=== PATIENT | female | born 1980 | race Caucasian/White ===

== ENCOUNTER 2017-11-28 19:18 | Emergency (ER) | payer OTHER, SELFPAY ==
[2017-11-28 19:19] VITALS: BP 140/65; PULSE 90; RESP 18; TEMP 36.9; O2SAT 100; BMI 29.6
--- NOTE | 2017-11-28 19:33 | XR_ITS ---
XR chest 2V Ordering Physician: Zackary Mckoy MD Patient Age: 37 years: Female HISTORY: ITS.REASON: chest pain. Chest pain TECHNIQUE: . PA Lateral chest COMPARISON :No previous chest film FINDINGS PA lateral chest demonstrate no active disease but the lungs well expanded and clear. Heart gustavo and mediastinal structures satisfactory. No pneumothorax. No pleural effusion. The markings upper normal towards the lingula most likely reflecting anterior fat pad. Chest wall T-spine ribs unremarkable shoulder satisfactory. IMPRESSION: Lungs clear nothing definitely acute
--- NOTE | 2017-11-28 19:36 | [facility].EDCP ---
ED Disposition Clinical Impression: Chest pain Qualifiers: Chest pain type: other chest pain Qualified Code(s): R07.89 - Other chest pain; R07.8 - Other chest pain Disposition: Still a Patient Condition on Discharge: Fair Referrals: Wendy Khoury [Primary Care Provider] - Ortiz Wise MD [Staff Physician] - Time of Disposition: 20:13 - Critical Care Critical Care Time: No Attestation: On , the high probability of a clinically significant, sudden or life threatening deterioration of the following system(s) required my full and direct attention, intervention and personal management. The time I documented below is in addition to time spent performing reported procedures but includes the following listed in this critical care notation. Medical Decision Making Vital Signs: 11/28/17 19:19 Temperature 98.4 F Temperature Source Oral Pulse Rate [Right] 90 Respiratory Rate 18 Blood Pressure [Right Arm] 140/65 Blood Pressure Mean [Right Arm] 90 02 Sat by Pulse Oximetry 100 Oxygen Delivery Method Room Air - Lab Data Lab Results 11/28/17 19:43: WBC 7.4, RBC 4.89, Hgb 14.4, Hct 43.1, MCV 88.1, MCH 29.4, MCHC 33.4, RDW 13.3, Plt Count 318, MPV 8.1, Neut % (Auto) 63.2, Lymph % (Auto) 28.7, [place] % (Auto) 4.5, Eos % (Auto) 3.2, Baso % (Auto) 0.4, Neut # (Auto) 4.7, Lymph # (Auto) 2.1, [place] # (Auto) 0.3, Eos # (Auto) 0.2, Baso # (Auto) 0.0 11/28/17 19:43: PT 10.3, INR 0.95 Result diagrams: 11/28/17 19:43 Orders (Tests/Meds): ED MEDICATIONS Generic Name Dose Route Start Last Admin Trade Name Freq PRN Reason Stop Dose Admin Sodium Chloride 10 ml 11/28/17 19:47 Saline Flush 10ml Syringe IV 12/28/17 19:46 NEEDED PRN Maintain IV Site ORDERS Category Date Time Status Chest XR 2 view (NOT portable) [XR chest 2V] Stat Exams 11/28/17 19:33 Ordered Cardiac Enzymes Stat Lab 01/08/18 19:43 Received Comprehensive Metabolic Panel Stat Lab 11/28/17 19:43 Received D-Dimer Stat Lab 11/28/17 19:43 Results Prothrombin Time INR Stat Lab 11/28/17 19:43 Results EKG Request [ECG Request by /Miles] Stat Y 11/28/17 19:35 Ordered - Guille Inquiry Pt receiving controlled substance: No Guille was queried for this patient: No Chest Pain HPI - General Chief Complaint: Chest Pain Stated Complaint: chest pain Time Seen by Provider: 11/28/17 19:24 Mode of Arrival: Ambulatory Source of Information: Patient Limitations: No Limitations Description of Symptoms (Recalled from ER Triage Doc. 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 SHE IS CURRENTLY C/O MILD CHEST TIGHTNESS IN HER ANTERIOR LEFT CHEST AND LEG CRAMPS. - History of Present Illness HPI narrative: Pt comes to the ED with complaints of chest tightness for the past 1 1/2 hours and says it feels like a heaviness on the chest that she rates 6/10. She reports she has never had pain like this before...it started while she was sitting at table talking to her sister and kids. She smokes 3/4 ppd and denies ETOH and says she does use pain pills off the street but has never used IV drugs. 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 complaint: chest pain indicative of cardiac Time: 18:00 Duration: constant Activity at onset: during rest Pain location: substernal Severity: moderate Severity scale (1-10): 6 Quality: tightness, heaviness Pain radiation: none Relieving factors: nothing Exacerbating factors: nothing Associated symptoms: other (none....? anxiety) Risk Factors for CAD: Family Hx of CAD Treatments prior to or on arrival for Cardiac Chest Pain: none - Related Data Home Medications Medication Instructions Recorded Confirmed Gabapentin [Gabapentin 800mg Tab] 800 mg PO TID 11/28/17 11/28/17 OLANZapine [Zyprexa 5mg tablet] 5 mg PO HS 11/28/17 11/28/17 Omepraz
--- NOTE | 2017-11-28 19:39 | ED_ITS ---
ED Disposition Clinical Impression: Chest pain Qualifiers: Chest pain type: other chest pain Qualified Code(s): R07.89 - Other chest pain ; R07.8 - Other chest pain Disposition: Still a Patient Condition on Discharge: Fair Referrals: Wendy Khoury [Primary Care Provider] - Ortiz Wise MD [Staff Physician] - Time of Disposition: 20:13 - Critical Care Critical Care Time: No Attestation: On , the high probability of a clinically significant, sudden or life threatening deterioration of the following system(s) required my full and direct attention, intervention and personal management. The time I documented below is in addition to time spent performing reported procedures but includes the following listed in this critical care notation. Medical Decision Making Vital Signs: 11/28/17 19:19 Temperature 98.4 F Temperature Source Oral Pulse Rate [Right] 90 Respiratory Rate 18 Blood Pressure [Right Arm] 140/65 Blood Pressure Mean [Right Arm] 90 02 Sat by Pulse Oximetry 100 Oxygen Delivery Method Room Air - Lab Data Lab Results 11/28/17 19:43: WBC 7.4, RBC 4.89, Hgb 14.4, Hct 43.1, MCV 88.1, MCH 29.4, MCHC 33.4, RDW 13.3, Plt Count 318, MPV 8.1, Neut % (Auto) 63.2, Lymph % (Auto) 28.7 , [place] % (Auto) 4.5, Eos % (Auto) 3.2, Baso % (Auto) 0.4, Neut # (Auto) 4.7, Lymph # (Auto) 2.1, [place] # (Auto) 0.3, Eos # (Auto) 0.2, Baso # (Auto) 0.0 11/28/17 19:43: PT 10.3, INR 0.95 Result diagrams: 11/28/17 19:43 Orders (Tests/Meds): ED MEDICATIONS Generic Name Dose Route Start Last Admin Trade Name Freq PRN Reason Stop Dose Admin Sodium Chloride 10 ml 11/28/17 19:47 Saline Flush 10ml Syringe IV 12/28/17 19:46 NEEDED PRN Maintain IV Site ORDERS Category Date Time Status Chest XR 2 view (NOT portable) [XR chest 2V] Stat Exams 11/28/17 19:33 Ordered Cardiac Enzymes Stat Lab 01/08/18 19:43 Received Comprehensive Metabolic Panel Stat Lab 11/28/17 19:43 Received D-Dimer Stat Lab 11/28/17 19:43 Results Prothrombin Time INR Stat Lab 11/28/17 19:43 Results EKG Request [ECG Request by /Miles] Stat Y 11/28/17 19:35 Ordered - Guille Inquiry Pt receiving controlled substance: No Guille was queried for this patient: No Chest Pain HPI - General Chief Complaint: Chest Pain Stated Complaint: chest pain Time Seen by Provider: 11/28/17 19:24 Mode of Arrival: Ambulatory Source of Information: Patient Limitations: No Limitations Description of Symptoms (Recalled from ER Triage Doc. 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 SHE IS CURRENTLY C/O MILD CHEST TIGHTNESS IN HER ANTERIOR LEFT CHEST AND LEG CRAMPS. - History of Present Illness HPI narrative: Pt comes to the ED with complaints of chest tightness for the past 1 1/2 hours and says it feels like a heaviness on the chest that she rates 6/10. She reports she has never had pain like this before...it started while she was sitting at table talking to her sister and kids. She smokes 3/4 ppd and denies ETOH and says she does use pain pills off the street but has never used IV drugs. 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 MD complaint: chest pain indicative of cardiac Time: 18:00
[2017-11-28 19:51] LABS: Basophils % 0.4 % (0.1-2.0); Eosinophils # 0.2 K/mm3 (0.0-0.4); Eosinophils % 3.2 % (0.1-12.0); Hematocrit 43.1 % (37.0-47.0); Hemoglobin 14.4 g/dL (12.2-16.2); Lymphocytes # 2.1 K/mm3 (0.7-4.5); Lymphocytes % 28.7 K/mm3 (10-50); Mean Corpuscular HGB Conc 33.4 g/dL (31.8-35.4); Mean Corpuscular Hemoglobin 29.4 pg (27.0-31.2); Mean Corpuscular Volume 88.1 fl (81-99); Mean Platelet Volume 8.1 fl (7.4-10.4); Monocytes # 0.3 K/mm3 (0.1-1.0); Monocytes % 4.5 % (1.7-9.3); Neutrophils # 4.7 K/mm3 (1.8-7.8); Neutrophils % 63.2 % (37.0-80.0); Platelet Count 318 K/mm3 (142-424); Red Blood Count 4.89 M/mm3 (4.20-5.40); Red Cell Distribution Width 13.3 % (11.5-17.5); White Blood Count 7.4 K/mm3 (4.8-10.8)
[2017-11-28 20:02] LABS: INR 0.95 (0.9-1.1); Prothrombin Time 10.3 seconds (9.4-11.8)
[2017-11-28 20:25] LABS: Alanine Aminotransferase 30 U/L (12-78); Albumin Level 3.9 gm/dL (3.4-5.0); Albumin/Globulin Ratio 0.8 (1.1-1.8); Alkaline Phosphatase 117 U/L (46-116); Anion Gap 10.4 mEq/L (5-15); Aspartate Amino Transferase 40 U/L (15-37); Bilirubin,Total 0.4 mg/dL (0.2-1.0); Blood Urea Nitrogen 14 mg/dL (7-18); CKMB Relative Index 1.2 U/L (0-4.0); Carbon Dioxide 24 mmol/L (21.0-32.0); Chloride 103 mmol/L (98-107); Creatine Kinase 92 U/L (26-192); Creatine Kinase MB 1.1 mg/ml (0.0-3.6); Creatinine Clearance Estimated 76 mL/min (0-300); Creatinine,Serum 1.29 mg/dL (0.55-1.02); Estimated Glomerular Filt Rate 47 ml/min (>60); GFR (African American) 56 ML/MIN (>60); Globulin 5.2 gm/dl (1.3-3.2); Glucose 99 mg/dL (74-106); Sodium 135 mmol/L (136-145); Total Protein,Serum 9.1 gm/dL (6.4-8.2); Troponin I < 0.02 ng/ml (0.00-0.06)
[2017-11-28 20:28] LABS: Potassium 2.4 mmoL/L (3.5-5.1)
--- NOTE | 2017-11-28 20:28 | PC.NURSE ---
CRITICAL RESULT K+ 2.[address] ROMERO
[2017-11-28 20:29] LABS: D-Dimer 630 (0-400)
--- NOTE | 2017-11-28 20:47 | CT_ITS ---
CT angio chest CTA chest Ordering Physician: Zackary Mckoy MD Patient Age: 37 years: Female HISTORY: ITS.REASON: ELEVATED D-DIMER Chest pain with elevated d-dimer TECHNIQUE: Helical CT scanning performed through the chest following 70 cc [id number] followed x 40 mL normal saline. From the acquired thin helical data thickened axial images performed along with Thickened MIPp slab volume reconstruction images performed coronal and sagittal planes on independent workstation COMPARISON :Prior chest films today and 03 29 16 FINDINGS . Good visualization of pulmonary arteries with No evidence of pulmonary embolism. . Aorta and great vessels mediastinum satisfactory. No significant findings. Nosignificant mediastinal or hilar adenopathy. Small calcified nodes towards AP window. Benign feature . Heart normal size. No remarkable findings. No pericardial effusion Lungs clear. No focal pneumonia. No active disease. No pleural effusion. No chest wall or rib abnormalities. Uppermost abdomen.. Limited imaging here Small Fatty left adrenal adenoma benign feature measure up to measuring just over 10 mm size Generous stool throughout the transverse colon. Mild fatty changes in liver. Cholecystectomy IMPRESSION: -- No evidence of pulmonary embolism. Good quality study. No acute findings in the chest. Lungs clear chest wall unremarkable.
--- NOTE | 2017-11-28 20:49 | PC.NURSE ---
PT TO CT
[2017-11-28 20:51] VITALS: BP 131/67; PULSE 85; RESP 18; TEMP 36.8; O2SAT 99
[2017-11-28 21:00] VITALS: BP 106/63; PULSE 90; RESP 18; TEMP 36.6; O2SAT 99
== END 2017-11-28 22:41 | disposition home or self-care (01) ==
PROVIDERS: Emergency Provider General Practice; Family Provider Family Medicine; PCP Family Medicine
DX: R07.89 Other chest pain (principal); E26.81 Bartter's syndrome; F17.210 Nicotine dependence, cigarettes, uncomplicated; Z79.899 Other long term (current) drug therapy
CPT/HCPCS: 71046; 71275; 80053; 82550; 82553; 84484; 85025; 85378; 85610; 93005; 93041; 99284; Q9967

== ENCOUNTER 2018-04-12 16:01 | Observation (INO) ==
[2018-04-12 16:43] LABS: Basophils % 0.3 % (0.1-2.0); Eosinophils # 0.3 K/mm3 (0.0-0.4); Eosinophils % 2.5 % (0.1-12.0); Hematocrit 36.5 % (37.0-47.0); Hemoglobin 13.1 g/dL (12.2-16.2); Lymphocytes # 4.2 K/mm3 (0.7-4.5); Lymphocytes % 36.4 K/mm3 (10-50); Mean Corpuscular HGB Conc 35.9 g/dL (31.8-35.4); Mean Corpuscular Hemoglobin 30.5 pg (27.0-31.2); Mean Platelet Volume 8.1 fl (7.4-10.4); Monocytes # 0.6 K/mm3 (0.1-1.0); Monocytes % 4.8 % (1.7-9.3); Neutrophils # 6.5 K/mm3 (1.8-7.8); Platelet Count 334 K/mm3 (142-424); Red Cell Distribution Width 13.9 % (11.5-17.5); White Blood Count 11.6 K/mm3 (4.8-10.8)
[2018-04-12 17:03] LABS: Alanine Aminotransferase 23 U/L (12-78); Albumin Level 3.6 gm/dL (3.4-5.0); Albumin/Globulin Ratio 0.8 (1.1-1.8); Alkaline Phosphatase 109 U/L (46-116); Anion Gap 16.1 mEq/L (5-15); Aspartate Amino Transferase 33 U/L (15-37); Bilirubin,Total 0.7 mg/dL (0.2-1.0); Blood Urea Nitrogen 22 mg/dL (7-18); Calcium 9.1 mg/dL (8.5-10.1); Carbon Dioxide 19 mmol/L (21.0-32.0); Chloride 102 mmol/L (98-107); Globulin 4.7 gm/dl (1.3-3.2); Glucose 88 mg/dL (74-106); Sodium 135 mmol/L (136-145); Total Protein,Serum 8.3 gm/dL (6.4-8.2)
[2018-04-12 17:09] LABS: Potassium 2.1 mmoL/L (3.5-5.1)
--- NOTE | 2018-04-12 17:40 | Emergency Department Note ---
ED Disposition Clinical Impression: Hypokalemia Disposition: Still a Patient Condition on Discharge: Fair - Critical Care Critical Care Time: Yes Attestation: On 04/12/18, the high probability of a clinically significant, sudden or life threatening deterioration of the following system(s) required my full and direct attention, intervention and personal management. The time I documented below is in addition to time spent performing reported procedures but includes the following listed in this critical care notation. Total Critical Care Time: 40 Vital system(s) involved:: Metabolic Failure My critical care processes included: Assessment & monitoring of V/S, Initial and Re-exams, Data Review/Interpretation, Coordinating Care, Medication Orders and management, Documentation Medical Decision Making - Guille Inquiry Pt receiving controlled substance: Yes Guille was queried for this patient: Yes Reference #:: [id number] Risks and benefits of using a controlled substance: were not discussed with pt by me Comment: 10 rxs for gabapentin Vital Signs: 04/12/18 16:16 04/12/18 17:19 Temperature 97.6 F Temperature Source Temporal Artery Scan Pulse Rate [Right Brachial] 92 H 95 H Respiratory Rate 18 18 Blood Pressure [Right Arm] 124/67 118/60 Blood Pressure Mean [Right Arm] 86 79 Blood Pressure Source [Right Arm] Automatic Cuff Automatic Cuff Blood Pressure Position [Right Arm] Sitting Sitting 02 Sat by Pulse Oximetry 100 97 Oxygen Delivery Method Room Air Room Air - Lab Data Lab Results 04/12/18 16:30: WBC 11.6 H, RBC 4.30, Hgb 13.1, Hct 36.5 L, MCV 85.0, MCH 30.5, MCHC 35.9 H, RDW 13.9, Plt Count 334, MPV 8.1, Neut % (Auto) 56.0, Lymph % (Auto ) 36.4, [place] % (Auto) 4.8, Eos % (Auto) 2.5, Baso % (Auto) 0.3, Neut # (Auto) 6.5, Lymph # (Auto) 4.2, [place] # (Auto) 0.6, Eos # (Auto) 0.3, Baso # (Auto) 0.0 04/12/18 16:30: Sodium 135 L, Potassium 2.1 L*, Chloride 102, Carbon Dioxide 19 L, Anion Gap 16.1 H, BUN 22 H, Creatinine 1.68 H, Estimated Creat Clear 53, Estimated GFR 34 L, Est GFR ( Amer) 41 L, Glucose 88, Calcium 9.1, Total Bilirubin 0.7, AST 33, ALT 23, Alkaline Phosphatase 109, Troponin I < 0.02, Total Protein 8.3 H, Albumin 3.6, Globulin 4.7 H, Albumin/Globulin Ratio 0.8 L Result diagrams: 04/12/18 16:30 04/12/18 16:30 Orders (Tests/Meds): ED MEDICATIONS Generic Name Dose Route Start Last Admin Trade Name Freq PRN Reason Stop Dose Admin Potassium Chloride/Dextrose/Sod Cl 1,000 mls @ 100 mls/hr 04/12/18 19:54 Kcl 40meq In Dex 5%/0.45% Nacl IV 05/12/18 19:53 .Q10H DG Morphine Sulfate 4 mg 04/12/18 19:54 Morphine 2mg/Ml Syringe IV 05/12/18 19:53 Q4HP PRN Pain Non-Formulary Medication 800 mg 04/12/18 21:00 Gabapentin [Gabapentin 800mg Tab] PO 05/12/18 20:59 TID DG Non-Formulary Medication 20 mg 04/13/18 09:00 Omeprazole Magnesium [Prilosec Otc 20mg Tab] PO 05/13/18 08:59 DAILY DG Non-Formulary Medication 4 mg 04/12/18 21:00 Ondansetron Hcl [Zofran 4mg Tab] PO 05/12/18 20:59 BID DG Olanzapine 5 mg 04/12/18 21:00 Zyprexa 5mg Tablet PO 05/12/18 20:59 HS DG Ondansetron HCl 4 mg 04/12/18 19:54 Zofran 4mg/2ml Vial IV 05/12/18 19:53 Q8HP PRN Nausea Potassium Chloride 80 meq 04/12/18 21:00 Klor-Con 20meq Tablet PO 05/12/18 20:59 TID DG Spironolactone 25 mg 04/13/18 09:00 Aldactone 25mg Tablet PO 05/13/18 08:59 DAILY DG Discontinued Medications Generic Name Dose Route Start Last Admin Trade Name Freq PRN Reason Stop Dose Admin Potassium Chloride/Water 100 mls @ 50 mls/hr 04/12/18 17:30 04/12/18 17:31 Potassium Chloride 20meq/100ml Ivpb IV 04/12/18 19:29 50 mls/hr ONCE ONE Administration Morphine Sulfate 4 mg 04/12/18 18:03 04/12/18 18:24 Morphine 4mg/Ml Syringe IV 04/12/18 18:04 4 mg ONCE ONE Administration Ondansetron HCl 4 mg 04/12/18 18:03 04/12/18 18:24 Zofran 4mg/2ml Vial IV 04/12/18 18:04 4 mg ONCE ONE Administration Potassium Chloride 80 meq 04/12/18 17:13 04/12/18 17:29 Klor-Con 20meq Tablet PO 04/12/18 17:14 80 meq ONCE ONE Administration Potassium Chloride/Water 20 meq 04/12/18 17:13 Potassium Chloride 20meq/100ml Ivpb IV 04/12/18 17:14 ONCE ONE ORDERS Category Date Time Status XR chest 2V Stat Exams 04/12/18 16:32 Taken Basic Metabolic Panel AMLAB Lab 04/13/18 06:00 Ordered - ECG Data Tracing #1 EKG interpreted by Dom Sanchez MD: Rhythm: sinus Rate: 84 [place]: normal Ectopy: none Conduction: normal ST Segment Changes: Nonspecific T Wave Changes: Nonspecific Q Waves: none No evidence of acute ischemia or injury - Physician Consults Physician Consulted: Lenin Time: 18:33 Reason -: Admission Comment/Response: Agrees to admit the patient to the hospital. We discussed the patient's clinical information, including history, exam, laboratory and radiology results and ED course. Per hospital procedure, I will write temporary bridge inpatient orders on the patient. Specific orders requested by the admitting physician: D5 one half normal saline with 40 mEq of potassium at 100 cc/h, 80 mEq of potassium orally 3 times a day. Recheck chemistry profile in the morning. General Adult HPI - General Chief complaint: Weakness Stated complaint: Low potassium Time Seen by Provider: 04/12/18 17:40 Mode of Arrival: Ambulatory Limitations: No Limitations Description of Symptoms (Recalled from ER Triage Doc. by RN): WEAKNESS, MUSCLES ACHES/PAIN - History of Present Illness HPI narrative: The patient has Bartter syndrome. She says that she feels like her potassium is low since Tuesday. She saw her primary care doctor on that day, was asymptomatic until after she saw them. She says they have been trying to call her but she has not been able to get a message from them. She does not know what they were calling about. Now she has generalized weakness and muscle aches and says that it correlates with a very low potassium. Her potassium has been as low as 1.9 in the past, which required ICU admission. She says that she took 160 mEq of potassium yesterday and an extra Spironolactone. She took an additional 80 mEq of potassium today. She is requesting pain medication for muscle pain. She states her usual daily dose of potassium is 6 tablets a day, she believes they are 20 mEq tablets. When her potassium is low she takes 8 per day. - Related Data Home Medications Medication Instructions Recorded Confirmed Gabapentin [Gabapentin 800mg Tab] 800 mg PO TID 11/28/17 04/12/18 OLANZapine [Zyprexa 5mg tablet] 5 mg PO HS 11/28/17 04/12/18 Omeprazole Magnesium [Prilosec Otc 20 mg PO DAILY 11/28/17 04/12/18 20mg Tab] Ondansetron HCl [Zofran 4mg Tab] 4 mg PO BID 11/28/17 04/12/18 Potassium Chloride [Pot Chlor 20 40 meq PO QID 11/28/17 04/12/18 mEq Tab] Spironolactone [Aldactone 25mg 25 mg PO DAILY 11/28/17 04/12/18 Tab] Allergies Allergy/AdvReac Type Severity Reaction Status Date / Time Penicillins [PENICILLINS] Allergy Mild Verified 11/28/17 19:33 [facility] History I have reviewed the patient's past medical history: Yes - Social History Educational Level: Completed High School Smoking Status: Current some day smoker Tobacco Type: cigarettes Alcohol Intake: never Alcohol Intake Frequency:: holidays/special occasions only Substance Use Type: opiates - Psychiatric History Expresses thoughts of harming self/others: None Suicide Plan Description: No Plan ROS Obtained: Yes All systems reviewed & no additional complaints - Constitutional Constitutional: Reports body ache, Reports weakness, Reports other (Anxiety) Physical Exam - General General appearance: alert, in no apparent distress, anxious - Head Head exam: atraumatic, normocephalic, normal inspection - Eye Eye exam: Present: normal appearance, PERRL, EOMI - ENT ENT exam: Present: normal exam, normal oropharynx, mucous membranes moist, TM's normal bilaterally, normal external ear exam - Neck Neck exam: Present: normal inspection, full ROM, trachea midline. Absent: meningismus, lymphadenopathy - Chest Chest inspection: Present: normal inspection, symmetric chest wall rise. Absent : tenderness - Respiratory Respiratory exam: Present: normal lung sounds bilaterally. Absent: respiratory distress - Cardiovascular Cardiovascular exam: Present: regular rate, normal rhythm. Absent: JVD - Abdominal Exam Abdominal exam: Present: soft, normal bowel sounds. Absent: distention, tenderness, guarding - Extremities Exam Extremities exam: Present: normal inspection, full ROM, normal capillary refill. Absent: calf tenderness - Back Exam Back exam: Present: normal inspection. Absent: tenderness - Neurological Exam Neurological exam: Present: alert, oriented X3 - Psychiatric Psychiatric exam: Present: anxious - Skin Skin exam: Present: warm, dry, intact, normal color
--- NOTE | 2018-04-13 07:32 | Pharmacy Consult Notes ---
[facility] Pharmacy VTE Monitoring - Patient Demographics Admission date: 04/12/18 Report Date: 04/13/18 Time: 07:31 Allergies/Adverse Reactions: Patient Allergies Penicillins [PENICILLINS] Allergy (Mild, Verified 11/28/17 19:33) Height: 1.65 m Weight: 74.503 kg Patient Problems: Current Active Problems Hypokalemia (Acute) - VTE Risk Labs: VTE Related Lab Results Hgb 13.1 g/dL (12.2-16.2) 04/12/18 16:30 Hct 36.5 % (37.0-47.0) L 04/12/18 16:30 Plt Count 334 K/mm3 (142-424) 04/12/18 16:30 BUN 22 mg/dL (7-18) H 04/12/18 16:30 Creatinine 1.68 mg/dL (0.55-1.02) H 04/12/18 16:30 Estimated Creat Clear 53 mL/min (0-300) 04/12/18 16:30 VTE Score: 1 - Prophylaxis VTE Prophylaxis Ordered?: Yes Types of VTE Prophylaxis: TEDS Knee High Location of Applied Device: Bilateral Lower Extremeties - VTE Diagnosis Confirmed Treatment or plan recommended: Continue Current Treatment
[2018-04-13 07:55] LABS: Anion Gap 15.7 mEq/L (5-15)
[2018-04-13 08:09] LABS: Potassium 2.7 mmoL/L (3.5-5.1)
--- NOTE | 2018-04-13 08:40 | History & Physical Report ---
*Admission Date: 04/12/18 <Eulalia López 04/13/18 08:43> *Chief complaint: hypokalemia <Eulalia López 04/13/18 08:43> *History of present illness: Ms. Solano is a 38-year-old female with a history of Bartter syndrome, anxiety, and bipolar disorder who went to her [facility] physician's office on Tuesday to have her blood checked. Her potassium at that time was 2.5. Her physician recommended she go to the emergency room, however she did not go until yesterday. She stayed at home and took approximately twelve 40 mEq potassium pills. When she got to the ER yesterday her potassium was down to 2.1, therefore she was admitted and started on potassium. She states due to the Bartter's syndrome she has consistently low potassium levels. She says her level is never higher than 2.7. This a.m. she is very anxious. She states she has to get out of here and go outside. She is complaining of diffuse muscle aches. <Eulalia López 04/13/18 08:43> [facility] History Medical History: Reports:: Anxiety Denies:: Cancer, Diabetes Mellitus Type 1, Diabetes Mellitus Type 2, MRSA < Eulalia López 04/13/18 08:43> Comment: Bipolar, Bartter Syndrome <Eulalia López 04/13/18 08:43> Other Surgeries: Yes: Appendectomy, Cholecystectomy, Other (tubal) <Eulalia López 04/13/18 08:43> Amputation: No <Eulalia López 04/13/18 08:43> Fractures: No <Eulalia López 04/13/18 08:43> - *Social History Educational Level: Completed Grade School <Eulalia López 04/13/18 08:43> Smoking Status: Current every day smoker <Eulalia López 04/13/18 08:43> Tobacco Type: cigarettes <Eulalia López 04/13/18 08:43> # Packs/Day (cigarettes): 1 <Eulalia López 04/13/18 08:43> #Yrs smoked (if former smoker): 20 <Eulalia López 04/13/18 08:43> Alcohol Intake: never <MaribelEulalia Kati 04/13/18 08:43> Alcohol Intake Frequency:: holidays/special occasions only <MaribelEulalia 08:43> Substance Use Type: opiates <Ronak Lópeza 04/13/18 08:43> Occupational Status: disabled <MaribelEulalia 04/13/18 08:43> Housing: house <MaribelEulalia 04/13/18 08:43> Household Members: family <MaribelEulalia Kati 04/13/18 08:43> - Psychiatric History Expresses thoughts of harming self/others: None <Eulalia López 04/13/18 08: 43> Suicide Plan Description: No Plan <MaribelEulalia 04/13/18 08:43> *Family Hx:: Unable to obtain <Eulalia López 04/13/18 08:43> Review of Systems - Constitutional Reports weakness, Denies fever(s) <MaribelEulalia 04/13/18 08:43> - Eyes Denies blurry vision, Denies double vision <MaribelEulalia 04/13/18 08:43> - ENT Denies nasal congestion, Denies sore throat <MaribelEulalia 04/13/18 08:43> - *Cardiovascular Denies chest pain <MaribelEulalia 04/13/18 08:43> - *Respiratory Reports shortness of breath <MaribelEulalia 04/13/18 08:43> - *Gastrointestinal Denies loose stools, Denies nausea, Denies vomiting <Eulalia López 04/13/18 08:43> - *Genitourinary Denies difficulty urinating, Denies painful urination <MaribelEulalia 08:43> - *Musculoskeletal Reports muscle cramps, Reports muscle weakness <Eulalia López 04/13/18 08:43 > - *Neurologic Reports weakness, Denies headache(s) <Eulalia López 04/13/18 08:43> Meds Home Medications Medication Instructions Recorded Confirmed Type Gabapentin [Gabapentin 800mg Tab] 800 mg PO TID 11/28/17 04/13/18 History OLANZapine [Zyprexa 5mg tablet] 5 mg PO HS 11/28/17 04/13/18 History Omeprazole Magnesium [Prilosec Otc 20 mg PO DAILY 11/28/17 04/12/18 History 20mg Tab] Ondansetron HCl [Zofran 4mg Tab] 4 mg PO BID 11/28/17 04/13/18 History Potassium Chloride [Pot Chlor 20 40 meq PO QID 11/28/17 04/13/18 History mEq Tab] Spironolactone [Aldactone 25mg 25 mg PO DAILY 11/28/17 04/13/18 History Tab] Doxepin HCl 100 mg PO HS 04/13/18 04/13/18 History raNITIdine HCl [Ranitidine HCl] 150 mg PO NEEDED PRN 04/13/18 04/13/18 History <Gary Phelps - 04/13/18 09:22> Allergies Allergy/AdvReac Type Severity Reaction Status Date / Time Penicillins [PENICILLINS] Allergy Mild Verified 11/28/17 19:33 <Gary Phelps 04/13/18 09:22> Exam Vital signs and Labs for Last 24 Hours: Temp Pulse Resp BP Pulse Ox 98.3 F 88 20 93/48 100 04/13/18 08:00 04/13/18 08:00 04/13/18 08:00 04/13/18 08:00 04/13/18 08:00 Laboratory Results - last 24 hr 04/12/18 16:30: WBC 11.6 H, RBC 4.30, Hgb 13.1, Hct 36.5 L, MCV 85.0, MCH 30.5, MCHC 35.9 H, RDW 13.9, Plt Count 334, MPV 8.1, Neut % (Auto) 56.0, Lymph % (Auto ) 36.4, [place] % (Auto) 4.8, Eos % (Auto) 2.5, Baso % (Auto) 0.3, Neut # (Auto) 6.5, Lymph # (Auto) 4.2, [place] # (Auto) 0.6, Eos # (Auto) 0.3, Baso # (Auto) 0.0 04/12/18 16:30: Sodium 135 L, Potassium 2.1 L*, Chloride 102, Carbon Dioxide 19 L, Anion Gap 16.1 H, BUN 22 H, Creatinine 1.68 H, Estimated Creat Clear 53, Estimated GFR 34 L, Est GFR ( Amer) 41 L, Glucose 88, Calcium 9.1, Total Bilirubin 0.7, AST 33, ALT 23, Alkaline Phosphatase 109, Troponin I < 0.02, Total Protein 8.3 H, Albumin 3.6, Globulin 4.7 H, Albumin/Globulin Ratio 0.8 L 04/13/18 06:24: Sodium 138, Potassium 2.7 L* D, Chloride 107, Carbon Dioxide 18 L, Anion Gap 15.7 H, BUN 16 D, Creatinine 1.60 H, Estimated Creat Clear 56, Estimated GFR 36 L, Est GFR ( Amer) 44 L, Glucose 102 <Gary Phelps - 04/13/18 09:22> Temp Pulse Resp BP Pulse Ox 98.1 F 89 22 114/74 100 04/13/18 04:00 04/13/18 04:00 04/13/18 04:00 04/13/18 04:00 04/13/18 04:00 Laboratory Results - last 24 hr 04/12/18 16:30: WBC 11.6 H, RBC 4.30, Hgb 13.1, Hct 36.5 L, MCV 85.0, MCH 30.5, MCHC 35.9 H, RDW 13.9, Plt Count 334, MPV 8.1, Neut % (Auto) 56.0, Lymph % (Auto ) 36.4, [place] % (Auto) 4.8, Eos % (Auto) 2.5, Baso % (Auto) 0.3, Neut # (Auto) 6.5, Lymph # (Auto) 4.2, [place] # (Auto) 0.6, Eos # (Auto) 0.3, Baso # (Auto) 0.0 04/12/18 16:30: Sodium 135 L, Potassium 2.1 L*, Chloride 102, Carbon Dioxide 19 L, Anion Gap 16.1 H, BUN 22 H, Creatinine 1.68 H, Estimated Creat Clear 53, Estimated GFR 34 L, Est GFR ( Amer) 41 L, Glucose 88, Calcium 9.1, Total Bilirubin 0.7, AST 33, ALT 23, Alkaline Phosphatase 109, Troponin I < 0.02, Total Protein 8.3 H, Albumin 3.6, Globulin 4.7 H, Albumin/Globulin Ratio 0.8 L 04/13/18 06:24: Sodium 138, Potassium 2.7 L* D, Chloride 107, Carbon Dioxide 18 L, Anion Gap 15.7 H, BUN 16 D, Creatinine 1.60 H, Estimated Creat Clear 56, Estimated GFR 36 L, Est GFR ( Amer) 44 L, Glucose 102 <MaribelEulalia - 04/13/18 08:43> I & O for Last 24 hours: Intake & Output 04/10/18 04/11/18 04/12/18 04/13/18 11:59 11:59 11:59 11:59 Intake Total 1094 / 1094 Balance 1094 / 1094 Weight 164 lb 4 oz <Gary Phelps - 04/13/18 09:22> Intake & Output 04/10/18 04/11/18 04/12/18 04/13/18 11:59 11:59 11:59 11:59 Intake Total 854 / 854 Balance 854 / 854 Weight 164 lb 4 oz <MaribelEulalia - 04/13/18 08:43> - Constitutional Comments: Anxious and agitated <MaribelEulalia 04/13/18 08:43> - *Routine HEENT Exam Head: Present: normocephalic, atraumatic <MaribelEulalia 04/13/18 08:43> Eye: Present: EOMI, PERRL <MaribelEulalia 04/13/18 08:43> ENT: Present: mucous membranes moist <MaribelEulalia - 04/13/18 08:43> - *Routine Neck Exam Present: supple, full ROM <MaribelEulalia 04/13/18 08:43> - *Routine Respiratory Exam Present: CTA bilaterally <MaribelEulalia 04/13/18 08:43> - *Routine Cardiovascular Exam Present: RRR <MaribelEulalia - 04/13/18 08:43> - *Routine Abdominal Exam Present: soft, normoactive bowel sounds. Absent: tenderness <Eulalia López 04/13/18 08:43> - *Routine Extremities Exam Absent: edema <Eulalia López - 04/13/18 08:43> - *Routine Skin Exam Present: intact <Eulalia López - 04/13/18 08:43> - *Routine Neurological Exam Present: alert, oriented X3 <Eulalia López 04/13/18 08:43> H&P: Result - Labs Labs: Short CBC 04/12/18 Range/Units 16:30 WBC 11.6 H (4.8-10.8) K/mm3 Hgb 13.1 (12.2-16.2) g/dL Hct 36.5 L (37.0-47.0) % Plt Count 334 (142-424) K/mm3 BMP 04/12/18 04/13/18 16:30 06:24 Sodium 135 L 138 Potassium 2.1 L* 2.7 L* D Chloride 102 107 Carbon Dioxide 19 L 18 L BUN 22 H 16 D Creatinine 1.68 H 1.60 H Glucose 88 102 Calcium 9.1 Cardiac Enzymes 04/12/18 Range/Units 16:30 Troponin I < 0.02 (0.00-0.06) ng/ml Liver Function 04/12/18 Range/Units 16:30 Total Bilirubin 0.7 (0.2-1.0) mg/dL AST 33 (15-37) U/L ALT 23 (12-78) U/L Alkaline Phosphatase 109 (46-116) U/L Albumin 3.6 (3.4-5.0) gm/dL <Gary Phelps - 04/13/18 09:22> <Eulalia López 04/13/18 08:43> - Impressions CXR - normal <Eulalia López 04/13/18 08:43> Assessment and Plan (1) Hypokalemia Status: Acute Category: Medical Code(s): E87.6 - Hypokalemia (2) Bipolar disorder Status: Chronic Category: Medical Code(s): F31.9 - Bipolar disorder, unspecified (3) Bartter syndrome Status: Chronic Category: Medical Code(s): E26.81 - Bartter's syndrome <Gary Phelps - 04/13/18 09:22> (1) Hypokalemia Status: Acute Category: Medical Code(s): E87.6 - Hypokalemia (2) Bipolar disorder Status: Chronic Category: Medical Code(s): F31.9 - Bipolar disorder, unspecified (3) Bartter syndrome Status: Chronic Category: Medical Code(s): E26.81 - Bartter's syndrome <Eulalia López - 04/13/18 08:37> - Assessment and plan all Dx Assessment and Plan for all problems:: Saw patient, agree with above note. Patient left AMA just after I saw her today. <Gary Phelps - 04/13/18 09:22> Her potassium is up to 2.7 today. Will discuss further care with Dr. Phelps. <Eulalia López - 04/13/18 08:43>
[2018-04-13 08:47] VITALS: BP 93/48
--- NOTE | 2018-04-13 21:37 | Discharge Summary ---
General - General Admission date:: 04/12/18 Discharge date: 04/13/18 HPI HPI: Ms. Solano is a 38-year-old female with a history of Bartter syndrome, anxiety, and bipolar disorder who went to her [facility] physician's office on Tuesday to have her blood checked. Her potassium at that time was 2.5. Her physician recommended she go to the emergency room, however she did not go until yesterday. She stayed at home and took approximately twelve 40 mEq potassium pills. When she got to the ER yesterday her potassium was down to 2.1, therefore she was admitted and started on potassium. She states due to the Bartter's syndrome she has consistently low potassium levels. She says her level is never higher than 2.7. This a.m. she is very anxious. She states she has to get out of here and go outside. She is complaining of diffuse muscle aches. Hospital Course Hospital Course: The patient's potassium increased to 2.7. She left AMA just after Dr. Phelps saw her. Objective Vital signs: Temp Pulse Resp BP Pulse Ox 98.3 F 88 20 93/48 100 04/13/18 08:00 04/13/18 08:00 04/13/18 08:00 04/13/18 08:00 04/13/18 08:00 Narrative: - Constitutional Comments: Anxious and agitated - *Routine HEENT Exam Head: Present: normocephalic, atraumatic Eye: Present: EOMI, PERRL ENT: Present: mucous membranes moist - *Routine Neck Exam Present: supple, full ROM - *Routine Respiratory Exam Present: CTA bilaterally - *Routine Cardiovascular Exam Present: RRR - *Routine Abdominal Exam Present: soft, normoactive bowel sounds. Absent: tenderness - *Routine Extremities Exam Absent: edema - *Routine Skin Exam Present: intact - *Routine Neurological Exam Present: alert, oriented X3 Results Labs on day of discharge: Labs from last 24 hours 04/13/18 06:24 Sodium 138 Potassium 2.7 L* D Chloride 107 Carbon Dioxide 18 L Anion Gap 15.7 H BUN 16 D Creatinine 1.60 H Estimated Creat Clear 56 Estimated GFR 36 L Est GFR ( Amer) 44 L Glucose 102 DS: Diagnosis - Discharge Diagnosis (1) Hypokalemia Status: Acute (2) Bipolar disorder Status: Chronic (3) Bartter syndrome Status: Chronic Discharge Plan - Patient Discharge Instructions - Follow up Plan Disposition: Left Against Medical Advice Home Medications: Home Medications Medication Instructions Recorded Confirmed Type Gabapentin [Gabapentin 800mg Tab] 800 mg PO TID 11/28/17 04/13/18 History OLANZapine [Zyprexa 5mg tablet] 5 mg PO HS 11/28/17 04/13/18 History Omeprazole Magnesium [Prilosec Otc 20 mg PO DAILY 11/28/17 04/12/18 History 20mg Tab] Ondansetron HCl [Zofran 4mg Tab] 4 mg PO BID 11/28/17 04/13/18 History Potassium Chloride [Pot Chlor 20 40 meq PO QID 11/28/17 04/13/18 History mEq Tab] Spironolactone [Aldactone 25mg 25 mg PO DAILY 11/28/17 04/13/18 History Tab] Doxepin HCl 100 mg PO HS 04/13/18 04/13/18 History raNITIdine HCl [Ranitidine HCl] 150 mg PO NEEDED PRN 04/13/18 04/13/18 History Prescriptions/Medication Reconciliation: No Action Gabapentin [Gabapentin 800mg Tab] 800 mg PO TID OLANZapine [Zyprexa 5mg tablet] 5 mg PO HS Ondansetron HCl [Zofran 4mg Tab] 4 mg PO BID Omeprazole Magnesium [Prilosec Otc 20mg Tab] 20 mg PO DAILY Potassium Chloride [Pot Chlor 20 mEq Tab] 40 meq PO QID Spironolactone [Aldactone 25mg Tab] 25 mg PO DAILY Doxepin HCl 100 mg PO HS raNITIdine HCl [Ranitidine HCl] 150 mg PO NEEDED PRN PRN Reason: Gi Upset
== END 2018-04-13 09:16 | disposition left against medical advice (07) ==
LOC: ER 16:01 → 2ND 16:01
PROVIDERS: ADMIT Family Medicine; ATTEND Family Medicine

== ENCOUNTER 2018-07-23 20:09 | Observation (INO) ==
--- NOTE | 2018-07-23 20:30 | Emergency Department Note ---
ED Disposition Clinical Impression: Hypokalemia, Acute gastroenteritis Disposition: Still a Patient Condition on Discharge: Fair Referrals: Wendy Khoury [Primary Care Provider] - - Critical Care Critical Care Time: No Attestation: On 07/23/18, the high probability of a clinically significant, sudden or life threatening deterioration of the following system(s) required my full and direct attention, intervention and personal management. The time I documented below is in addition to time spent performing reported procedures but includes the following listed in this critical care notation. Medical Decision Making - Guille Inquiry Pt receiving controlled substance: No Vital Signs: 07/23/18 20:13 07/23/18 22:11 Temperature 98.7 F Temperature Source Oral Pulse Rate [Right Brachial] 84 82 Respiratory Rate 18 18 Blood Pressure [Right Arm] 117/92 115/88 Blood Pressure Mean [Right Arm] 100 97 Blood Pressure Source [Right Arm] Automatic Cuff Automatic Cuff Blood Pressure Position [Right Arm] Sitting Sitting 02 Sat by Pulse Oximetry 97 98 Oxygen Delivery Method Room Air Room Air - Lab Data Lab Results 07/23/18 20:25: WBC 13.7 H, RBC 5.30, Hgb 15.1, Hct 44.9, MCV 84.7, MCH 28.5, MCHC 33.6, RDW 13.8, Plt Count 401, MPV 8.5, Neut % (Auto) 78.1, Lymph % (Auto) 16.1, [place] % (Auto) 3.4, Eos % (Auto) 2.2, Baso % (Auto) 0.2, Neut # (Auto) 10.7 H, Lymph # (Auto) 2.2, [place] # (Auto) 0.5, Eos # (Auto) 0.3, Baso # (Auto) 0.0 07/23/18 20:25: Sodium 141, Potassium 2.4 L*, Chloride 106, Carbon Dioxide 20 L, Anion Gap 17.4 H, BUN 18, Creatinine 1.51 H, Estimated Creat Clear 54, Estimated GFR 39 L, Est GFR ( Amer) 47 L, Glucose 118 H, Calcium 9.6, Total Bilirubin 0.5, AST 16, ALT 17, Alkaline Phosphatase 119 H, Total Protein 9.2 H, Albumin 3.8, Globulin 5.4 H, Albumin/Globulin Ratio 0.7 L 09/02/18 20:25: Lactate 0.7 09/02/18 20:25: Lipase 228 07/23/18 20:25: Urine HCG, Qual Negative 07/23/18 20:41: Urine Color Yellow, Urine Appearance Sl cloudy, Urine pH 7.0, Ur Specific [place] 1.015, Urine Protein 1+, Urine Glucose (UA) Negative, Urine Ketones 1+, Urine Blood Trace-i, Urine Nitrate Positive, Urine Bilirubin Negative, Urine Urobilinogen 0.2, Ur Leukocyte Esterase Negative, Urine RBC 5- 10, Urine WBC Occasional, Ur Squamous Epith Cells 20-50, Amorphous Sediment 4+, Urine Bacteria 4+ Result diagrams: 07/23/18 20:25 07/23/18 20:25 Orders (Tests/Meds): ED MEDICATIONS Generic Name Dose Route Start Last Admin Trade Name Freq PRN Reason Stop Dose Admin Potassium Chloride/Water 100 mls @ 50 mls/hr 07/23/18 22:16 07/23/18 22:25 Potassium Chloride 20meq/100ml Ivpb IV 07/24/18 00:15 50 mls/hr ONCE ONE Administration Sodium Chloride 1,000 mls @ 999 mls/hr 07/23/18 22:30 07/23/18 22:30 Sod Chlor 0.9% 1000ml Bag IV 07/23/18 23:30 999 mls/hr .Q1H1M DG Administration Spironolactone 25 mg 07/24/18 09:00 Aldactone 25mg Tablet PO 08/23/18 08:59 BID DG Trimethoprim/Sulfamethoxazole 1 each 07/24/18 09:00 Bactrim Ds Tablet PO 08/07/18 08:59 BID DG Protocol Discontinued Medications Generic Name Dose Route Start Last Admin Trade Name Freq PRN Reason Stop Dose Admin Sodium Chloride 1,000 mls @ 999 mls/hr 07/23/18 20:45 07/23/18 20:37 Sod Chlor 0.9% 1000ml Bag IV 07/23/18 21:45 999 mls/hr .Q1H1M DG Administration Ondansetron HCl 4 mg 07/23/18 20:34 07/23/18 20:37 Zofran 4mg/2ml Vial IV 07/23/18 20:35 4 mg ONCE ONE Administration Potassium Chloride 80 meq 07/23/18 21:08 07/23/18 21:36 Klor-Con 20meq Tablet PO 07/23/18 21:09 80 meq ONCE ONE Administration Potassium Chloride/Water 20 meq 07/23/18 21:08 Potassium Chloride 20meq/100ml Ivpb IV 07/23/18 21:09 ONCE ONE Potassium Chloride/Water 20 meq 07/23/18 22:14 Potassium Chloride 20meq/100ml Ivpb IV 07/23/18 22:15 ONCE ONE ORDERS Category Date Time Status Urinalysis and Microscopic Stat Lab 07/23/18 20:41 Ordered Blood Culture Stat Micro 07/23/18 20:41 Ordered Urine Culture Stat Micro 07/23/18 20:41 Received Wound Culture and Gram Stain Stat Micro 07/23/18 20:41 Ordered - Physician Consults Physician Consulted: Estevan Time: 22:33 Reason -: Admission Comment/Response: Agrees to admit the patient to the hospital. We discussed the patient's clinical information, including history, exam, laboratory and radi ology results and ED course. Per hospital procedure, I will write temporary bridge inpatient orders on the patient. Specific orders requested by the admitting physician: Spironolactone 25 mg twice daily, Bactrim DS, IV fluids with 40 of potassium per liter. Recheck electrolytes in the morning. - Reevaluation(s) Time: 22:00 Reevaluation #1: Improved, no nausea. No abdominal pain. States when potassium is below 3.4, she can never get it up taking medicines at home. She feels she needs to be admitted. General Adult HPI - General Stated complaint: Abd Pain,Vomiting,fever,weakness Time Seen by Provider: 07/23/18 20:30 - History of Present Illness HPI narrative: States started getting chills on Tuesday 2 days ago. Began having vomiting and diarrhea yesterday. The last diarrhea she had was last night. No blood. States abdomen does not hurt, just feels nauseated. Also notes that she has a few small pustules on several areas of her body including right axilla and anterior abdomen. She says they pop up and then rupture within 12 hours. Has a history of MRSA. Has Bartter syndrome. Takes 6 potassium tablets a day, 20 mEq. When she feels like her potassium is low, she can take 8. She has been taking 8 per day since Tuesday, but did not take any today because she could not hold it down. She feels like her potassium is low. - Related Data Home Medications Medication Instructions Recorded Confirmed Gabapentin [Gabapentin 800mg Tab] 800 mg PO TID 11/28/17 07/23/18 OLANZapine [Zyprexa 5mg tablet] 5 mg PO HS 11/28/17 07/23/18 Omeprazole Magnesium [Prilosec Otc 20 mg PO DAILY 11/28/17 07/23/18 20mg Tab] Ondansetron HCl [Zofran 4mg Tab] 4 mg PO BID 11/28/17 07/23/18 Potassium Chloride [Pot Chlor 20 40 meq PO QID 11/28/17 07/23/18 mEq Tab] Spironolactone [Aldactone 25mg 25 mg PO DAILY 11/28/17 07/23/18 Tab] Doxepin HCl 100 mg PO HS 04/13/18 07/23/18 raNITIdine HCl [Ranitidine HCl] 150 mg PO NEEDED PRN 04/13/18 07/23/18 Allergies Allergy/AdvReac Type Severity Reaction Status Date / Time Penicillins [PENICILLINS] Allergy Mild Verified 11/28/17 19:33 lorazepam [From Ativan] AdvReac Verified 07/23/18 20:38 [facility] History I have reviewed the patient's past medical history: Yes Medical History: Reports:: Anxiety Denies:: Cancer, Diabetes Mellitus Type 1, Diabetes Mellitus Type 2, MRSA Comment: Bipolar, Bartter Syndrome Other Surgeries: Yes: Appendectomy, Cholecystectomy, Other (tubal) Amputation: No Fractures: No - Social History Smoking Status: Current every day smoker Tobacco Type: cigarettes # Packs/Day (cigarettes): 1 #Yrs smoked (if former smoker): 20 Alcohol Intake: never Alcohol Intake Frequency:: holidays/special occasions only Substance Use Type: opiates Occupational Status: disabled Housing: house Household Members: family - Psychiatric History Pschychiatric History:: Reports:: Anxiety Family Hx:: Unable to obtain ROS Obtained: Yes All systems reviewed & no additional complaints - Constitutional Constitutional: Reports chills, Reports fever(s) (Subjective, not measured) - Gastrointestinal Gastrointestingal: Reports: diarrhea, vomiting. Denies: abdominal pain - Integumentary/Breasts Skin/Breast: Reports as per HPI Physical Exam - General General appearance: alert, in no apparent distress - Head Head exam: atraumatic, normocephalic, normal inspection - Eye Eye exam: Present: normal appearance, PERRL, EOMI - ENT ENT exam: Present: normal exam, normal oropharynx, mucous membranes moist, TM's normal bilaterally, normal external ear exam - Neck Neck exam: Present: normal inspection, full ROM, trachea midline. Absent: meningismus, lymphadenopathy - Chest Chest inspection: Present: normal inspection, symmetric chest wall rise. Absent: tenderness - Respiratory Respiratory exam: Present: normal lung sounds bilaterally. Absent: respiratory distress - Cardiovascular Cardiovascular exam: Present: regular rate, normal rhythm. Absent: JVD - Abdominal Exam Abdominal exam: Present: soft, normal bowel sounds. Absent: distention, tenderness, guarding - Extremities Exam Extremities exam: Present: normal inspection, full ROM, normal capillary refill. Absent: calf tenderness - Back Exam Back exam: Present: normal inspection. Absent: tenderness - Neurological Exam Neurological exam: Present: alert, oriented X3 - Psychiatric Psychiatric exam: Present: normal affect, normal mood - Skin Skin exam: Present: warm, dry, intact, normal color, other - Expanded Skin Exam Comment: Few small erythematous lesions approximately dime to quarter size with overlying ruptured vesicles or pustules. Lesions seen in the right axilla and on anterior abdomen. There is one small 2 mm intact pustule anterior lower abdomen which was ruptured and sent for culture. - Lymphatic Lymphatic Findings: no adenopathy
[2018-07-23 20:50] LABS: Basophils % 0.2 % (0.1-2.0); Eosinophils # 0.3 K/mm3 (0.0-0.4); Eosinophils % 2.2 % (0.1-12.0); Hematocrit 44.9 % (37.0-47.0); Hemoglobin 15.1 g/dL (12.2-16.2); Lymphocytes # 2.2 K/mm3 (0.7-4.5); Lymphocytes % 16.1 K/mm3 (10-50); Mean Corpuscular HGB Conc 33.6 g/dL (31.8-35.4); Mean Corpuscular Hemoglobin 28.5 pg (27.0-31.2); Mean Corpuscular Volume 84.7 fl (81-99); Mean Platelet Volume 8.5 fl (7.4-10.4); Monocytes # 0.5 K/mm3 (0.1-1.0); Monocytes % 3.4 % (1.7-9.3); Neutrophils # 10.7 K/mm3 (1.8-7.8); Neutrophils % 78.1 % (37.0-80.0); Platelet Count 401 K/mm3 (142-424); Red Cell Distribution Width 13.8 % (11.5-17.5); White Blood Count 13.7 K/mm3 (4.8-10.8)
[2018-07-23 20:52] LABS: Microscopic, Urine URINE MICROSCOPIC (MICROSCOPIC)
[2018-07-23 21:02] LABS: Appearance,Urine SL CLOUDY (Clear); Blood, Urine TRACE-I (Negative); Color,Urine YELLOW (Yellow); Glucose,Urine (UA) Negative (Negative); Ketones,Urine 1+ (Negative); Leukocyte Esterase,Urine Negative (Negative); Protein,Urine 1+ (Negative); Specific Gravity, Urine 1.015 (1.005-1.030); Urobilinogen,Urine 0.2 EU/dl (0.2)
[2018-07-23 21:06] LABS: Bilirubin,Urine Negative (Negative)
[2018-07-23 21:07] LABS: Albumin Level 3.8 gm/dL (3.4-5.0); Albumin/Globulin Ratio 0.7 (1.1-1.8); Anion Gap 17.4 mEq/L (5-15); Bilirubin,Total 0.5 mg/dL (0.2-1.0); Calcium 9.6 mg/dL (8.5-10.1); Globulin 5.4 gm/dl (1.3-3.2); Total Protein,Serum 9.2 gm/dL (6.4-8.2)
[2018-07-23 21:08] LABS: Potassium 2.4 mmoL/L (3.5-5.1)
[2018-07-23 21:09] LABS: Amorphous Sediment,Urine 4+ /lpf; Bacteria,Urine 4+ /lpf; Squamous Epithelial Cell,Urine 20-50 #/hpf (0-5)
[2018-07-23 21:10] LABS: WBC,Urine Occasional #/hpf (0-3)
[2018-07-24 01:48] LABS: Amphetamine/Metha Screen,Urine Positive ng/mL (<1000); Barbiturates Screen,Urine Negative ng/mL (<200); Benzodiazepines Screen,Urine Positive ng/mL (<200); Cannabinoid Screen,Urine Negative ng/mL (<50); Cocaine Screen,Urine Negative ng/mL (<300); Methadone Screen,Urine Negative ng/mL (<300); Opiate Screen,Urine Positive ng/mL (<300); Phencyclidine Screen,Urine Negative ng/mL (<25)
[2018-07-24 06:03] LABS: Anion Gap 13.4 mEq/L (5-15)
[2018-07-24 06:07] LABS: Potassium 2.4 mmoL/L (3.5-5.1)
--- NOTE | 2018-07-24 08:10 | History & Physical Report ---
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 Is characterized by low potassium levels and increased pH plus low to normal blood pressure. She is a patient of Dr. Esteves in [facility]. She has not seen him recently. She was hospitalized in June at [place] for 3 or 4 days. Her bag hanger is Dr. Isaacs. She presented in the emergency room because of nausea and vomiting and suspecting low potassium. She takes 40 mEq of potassium daily 3 times a day or 4 times a day if she needs it when her potassium is low. She was at a republican Tuesday. She is to taking an Adderall. She admits to taking hydrocodone. She says that she does not take illicit drugs on a regular basis. She has had some diarrhea and has had lots of vomiting. She was to emergency room with a run of potassium and was admitted. Her potassium remains low this morning at 2.4. She is very agitated and continues to retch and heave. [facility] History Medical History: Reports:: Anxiety Denies:: Cancer, Diabetes Mellitus Type 1, Diabetes Mellitus Type 2, MRSA Other Surgeries: Yes: Appendectomy, Cholecystectomy, Other (tubal) Amputation: No Fractures: No - *Social History Smoking Status: Current every day smoker Tobacco Type: cigarettes # Packs/Day (cigarettes): 1 #Yrs smoked (if former smoker): 20 Alcohol Intake: never Alcohol Intake Frequency:: holidays/special occasions only Substance Use Type: opiates Last Used Substance: days (ago) Occupational Status: disabled Housing: house Household Members: family - Psychiatric History Expresses thoughts of harming self/others: None Suicide Plan Description: No Plan Pschychiatric History:: Reports:: Anxiety *Family Hx:: Unable to obtain Review of Systems - Constitutional Reports body ache(s), Reports chills, Reports fever(s), Reports weakness - Eyes Denies blurry vision, Denies change in vision - ENT Denies dizziness, Denies throat swelling, Denies tongue swelling - *Cardiovascular Reports chest pain, Reports shortness of breath, Denies irregular heart rhythm, Denies fainting - *Respiratory Reports shortness of breath, Denies chest congestion - *Gastrointestinal Reports cramping, Reports nausea, Reports vomiting - *Genitourinary Denies abnormal periods - *Musculoskeletal Reports muscle cramps, Reports body aches - Integumentary/Breasts Reports lesions, Reports new lesions (Some recent pustular lesions, right axilla and of the abdomen), Denies unusual bruising - *Neurologic Reports tingling/numbness/burning sensations, Denies seizure-like activity - Psychiatric Reports anxiety Meds Home Medications Medication Instructions Recorded Confirmed Type Gabapentin [Gabapentin 800mg Tab] 800 mg PO TID 11/28/17 07/23/18 History OLANZapine [Zyprexa 5mg tablet] 5 mg PO HS 11/28/17 07/23/18 History Omeprazole Magnesium [Prilosec Otc 20 mg PO DAILY 11/28/17 07/23/18 History 20mg Tab] Ondansetron HCl [Zofran 4mg Tab] 4 mg PO BID 11/28/17 07/23/18 History Potassium Chloride [Pot Chlor 20 40 meq PO QID 11/28/17 07/23/18 History mEq Tab] Spironolactone [Aldactone 25mg 25 mg PO DAILY 11/28/17 07/23/18 History Tab] Doxepin HCl 100 mg PO HS 04/13/18 07/23/18 History raNITIdine HCl [Ranitidine HCl] 150 mg PO NEEDED PRN 04/13/18 07/23/18 History Allergies Allergy/AdvReac Type Severity Reaction Status Date / Time Penicillins [PENICILLINS] Allergy Mild Verified 11/28/17 19:33 lorazepam [From Ativan] AdvReac Verified 07/23/18 20:38 Exam Vital signs and Labs for Last 24 Hours: Temp Pulse Resp BP Pulse Ox 98.7 F 78 20 123/65 100 07/24/18 07:52 07/24/18 07:52 07/24/18 07:52 07/24/18 07:52 07/24/18 07:52 Laboratory Results - last 24 hr 07/23/18 20:22: Urine Opiates Screen Positive H, Urine Methadone Screen Negati ve, Ur Barbituates Screen Negative, Ur Phencyclidine Scrn Negative, Ur Amphetamines Screen Positive H, U Benzodiazepines Scrn Positive H, Urine Cocaine Screen Negative, U Marijuana (THC) Screen Negative 07/23/18 20:25: WBC 13.7 H, RBC 5.30, Hgb 15.1, Hct 44.9, MCV 84.7, MCH 28.5, MCHC 33.6, RDW 13.8, Plt Count 401, MPV 8.5, Neut % (Auto) 78.1, Lymph % (Auto) 16.1, [place] % (Auto) 3.4, Eos % (Auto) 2.2, Baso % (Auto) 0.2, Neut # (Auto) 10.7 H, Lymph # (Auto) 2.2, [place] # (Auto) 0.5, Eos # (Auto) 0.3, Baso # (Auto) 0.0 07/23/18 20:25: Sodium 141, Potassium 2.4 L*, Chloride 106, Carbon Dioxide 20 L, Anion Gap 17.4 H, BUN 18, Creatinine 1.51 H, Estimated Creat Clear 54, Estimated GFR 39 L, Est GFR ( Amer) 47 L, Glucose 118 H, Calcium 9.6, Total Bilirubin 0.5, AST 16, ALT 17, Alkaline Phosphatase 119 H, Total Protein 9.2 H, Albumin 3.8, Globulin 5.4 H, Albumin/Globulin Ratio 0.7 L 07/23/18 20:25: Lactate 0.7 07/23/18 20:25: Lipase 228 07/23/18 20:25: Urine HCG, Qual Negative 07/23/18 20:41: Urine Color Yellow, Urine Appearance Sl cloudy, Urine pH 7.0, Ur Specific [place] 1.015, Urine Protein 1+, Urine Glucose (UA) Negative, Urine Ketones 1+, Urine Blood Trace-i, Urine Nitrate Positive, Urine Bilirubin Negative, Urine Urobilinogen 0.2, Ur Leukocyte Esterase Negative, Urine RBC 5- 10, Urine WBC Occasional, Ur Squamous Epith Cells 20-50, Amorphous Sediment 4+, Urine Bacteria 4+ 07/24/18 05:06: Sodium 147 H, Potassium 2.4 L*, Chloride 112 H, Carbon Dioxide 24, Anion Gap 13.4, BUN 14, Creatinine 1.36 H, Estimated Creat Clear 62, Estimated GFR 44 L, Est GFR ( Amer) 53 L, Glucose 104, Calcium 9.0 I & O for Last 24 hours: Intake & Output 07/21/18 07/22/18 07/23/18 07/24/18 11:59 11:59 11:59 11:59 Intake Total 1999 / 1999 Output Total 500 / 500 Balance 1500 / 1500 Weight 155 lb 5 oz Microbiology Reports for the Last 24 Hours: Microbiology 07/23/18 20:41 Abdomen Gram Stain - Final - Constitutional moderate distress, agitated Comments: retches - *Routine HEENT Exam Head: Present: normocephalic Eye: Present: PERRL ENT: Present: mucous membranes moist - *Routine Neck Exam Present: supple - Routine Chest/Breast/Axilla Exam Axillae: Absent: lymphadenopathy, tenderness, rashes - *Routine Respiratory Exam Present: CTA bilaterally - *Routine Cardiovascular Exam Present: RRR Comments: No ectopics noted - *Routine Abdominal Exam Present: soft. Absent: tenderness Comments: A few scattered erythematous lesions. - *Routine Rectal Exam Comments: deferred - *Routine Exam Comments: Not examined - *Routine Extremities Exam Absent: edema Comments: Tattoo of the foot - Routine Back/Spine/Pelvis Exam Back/Spine: Absent: paraspinal tenderness - *Routine Skin Exam Present: pallor, rash - *Routine Neurological Exam Present: oriented X3, moving all extremities. Absent: motor deficit Agitated Assessment and Plan (1) Acute gastroenteritis Current visit: Yes Status: Acute Category: Medical Code(s): K52.9 - Noninfective gastroenteritis and colitis, unspecified (2) Hypokalemia Current visit: Yes Status: Acute Category: Medical Code(s): E87.6 - Hypokalemia (3) Atypical chest pain Current visit: No Status: Acute Category: Medical Code(s): R07.89 - Other chest pain (4) Bartter syndrome Current visit: No Status: Chronic Category: Medical Code(s): E26.81 - Bartter's syndrome (5) Bipolar disorder Current visit: No Status: Chronic Category: Medical Code(s): F31.9 - Bipolar disorder, unspecified - Assessment and plan all Dx Assessment and Plan for all problems:: See orders. We will continue high doses of potassium. Spironolactone has been increased to twice a day. I am going to add diazepam due to her agitated state.
--- NOTE | 2018-07-24 09:26 | Pharmacy Consult Notes ---
[facility] Pharmacy VTE Monitoring - Patient Demographics Admission date: 07/24/18 Report Date: 07/24/18 Time: 09:26 Allergies/Adverse Reactions: Patient Allergies Penicillins [PENICILLINS] Allergy (Mild, Verified 11/28/17 19:33) lorazepam [From Ativan] Adverse Reaction (Verified 07/23/18 20:38) Height: 1.63 m Weight: 70.449 kg Patient Problems: Current Active Problems Hypokalemia (Acute) Acute gastroenteritis (Acute) - VTE Risk Labs: VTE Related Lab Results Hgb 15.1 g/dL (12.2-16.2) 07/23/18 20:25 Hct 44.9 % (37.0-47.0) 07/23/18 20:25 Plt Count 401 K/mm3 (142-424) 07/23/18 20:25 BUN 14 mg/dL (7-18) 07/24/18 05:06 Creatinine 1.36 mg/dL (0.55-1.02) H 07/24/18 05:06 Estimated Creat Clear 62 mL/min (0-300) 07/24/18 05:06 Was VTE Risk Assessment Performed: Yes VTE Score: 3 VTE Risk Level: Low Risk Clinical Trial Participant: No - Prophylaxis VTE Prophylaxis Ordered?: Yes Types of VTE Prophylaxis: TEDS Knee High
[2018-07-25 07:42] LABS: Albumin Level 2.6 gm/dL (3.4-5.0); Albumin/Globulin Ratio 0.7 (1.1-1.8); Anion Gap 11.8 mEq/L (5-15); Bilirubin,Total 0.4 mg/dL (0.2-1.0); Calcium 8.1 mg/dL (8.5-10.1); Globulin 3.9 gm/dl (1.3-3.2); Total Protein,Serum 6.5 gm/dL (6.4-8.2)
[2018-07-25 07:54] LABS: Potassium 2.8 mmoL/L (3.5-5.1)
--- NOTE | 2018-07-25 08:18 | Progress Note ---
<Esme Sumner - Last Filed: 07/25/18 08:15> Internal Medicine - PN: Subj *Date: 07/25/18 *Time: 08:15 Interval history: Patient states that she has had no nausea or vomiting or diarrhea during the night. She denies chest pain and shortness of breath. IV did come out and nurses were unable to restart after several sticks. Patient states the numbness she receives several IV bags of potassium that her potassium will not increase. She refuses p.o. potassium and some of her other meds. She has been started on an antibiotic for E. coli urinary tract infection. She has not been drinking very well and requests Mountain Dew. She states she has had a decrease in her urinary output. She does ambulate in the room to the bathroom. Exam Vital signs and Labs for Last 24 Hours: Temp Pulse Resp BP Pulse Ox 98.6 F 60 16 110/60 97 07/25/18 07:29 07/25/18 07:29 07/25/18 07:29 07/25/18 07:29 07/25/18 07:29 Laboratory Results - last 24 hr 07/23/18 20:41: Urine Color Yellow, Urine Appearance Sl cloudy, Urine pH 7.0, Ur Specific [place] 1.015, Urine Protein 1+, Urine Glucose (UA) Negative, Urine Ketones 1+, Urine Blood Trace-i, Urine Nitrate Positive, Urine Bilirubin Ne gative, Urine Urobilinogen 0.2, Ur Leukocyte Esterase Negative, Urine RBC 5-10, Urine WBC Occasional, Ur Squamous Epith Cells 20-50, Amorphous Sediment 4+, Urine Bacteria 4+ 07/24/18 05:06: TSH 0.47 07/25/18 07:15: Sodium 146 H, Potassium 2.8 L*, Chloride 115 H, Carbon Dioxide 22, Anion Gap 11.8, BUN 9 D, Creatinine 1.12 H, Estimated Creat Clear 76, Estimated GFR 54 L, Est GFR ( Amer) 66 D, Glucose 96, Calcium 8.1 L, Total Bilirubin 0.4, AST 8 L D, ALT 13, Alkaline Phosphatase 80, Total Protein 6.5 D, Albumin 2.6 L D, Globulin 3.9 H, Albumin/Globulin Ratio 0.7 L I & O for Last 24 hours: Intake & Output 09/0107/23/18 07/24/18 07/25/18 11:59 11:59 11:59 11:59 Intake Total 1999 / 1999 2446 / 2446 Output Total 500 / 500 Balance 1500 / 1500 2446 / 2446 Weight 155 lb 5 oz 155 lb 5.015 oz Microbiology Reports for the Last 24 Hours: Microbiology 07/23/18 20:41 Abdomen Gram Stain - Final 07/23/18 20:41 Abdomen Wound Culture - Preliminary Gram Positive Cocci 07/23/18 20:41 Urine,Random Urine Culture - Final Escherichia coli - Constitutional no acute distress Comments: Awakened for exam. - *Routine HEENT Exam ENT: Present: mucous membranes dry - *Routine Respiratory Exam Present: CTA bilaterally (Anteriorly and posteriorly) - *Routine Cardiovascular Exam Present: RRR - *Routine Abdominal Exam Present: soft, normoactive bowel sounds. Absent: tenderness, distended - *Routine Extremities Exam Present: full ROM. Absent: edema, calf tenderness - *Routine Neurological Exam Present: alert, oriented X3 Assessment and Plan (1) Acute gastroenteritis Current visit: Yes Status: Acute Category: Medical Code(s): K52.9 - Noninfective gastroenteritis and colitis, unspecified (2) Hypokalemia Current visit: Yes Status: Acute Category: Medical Code(s): E87.6 - Hypokalemia (3) Atypical chest pain Current visit: No Status: Acute Category: Medical Code(s): R07.89 - Other chest pain (4) Bartter syndrome Current visit: No Status: Chronic Category: Medical Code(s): E26.81 - Bartter's syndrome (5) Bipolar disorder Current visit: No Status: Chronic Category: Medical Code(s): F31.9 - Bipolar disorder, unspecified (6) E. coli urinary tract infection Current visit: Yes Status: Acute Category: Medical Code(s): N39.0 - Urinary tract infection, site not specified; B96.20 - Unspecified Escherichia coli [E. coli] as the cause of diseases classified elsewhere - Assessment and plan all Dx Assessment and Plan for all problems:: Patient is agreeable to PICC line placement. Will give IV fluids and IV potassium. We will check potassium after 2 rounds are 40 mEq IV. Patient is receiving Bactrim for her urinary tract infection <Caitlin Wolfe - Last Filed: 07/25/18 08:53> Exam Vital signs and Labs for Last 24 Hours: Temp Pulse Resp BP Pulse Ox 98.6 F 60 16 110/60 97 07/25/18 07:29 07/25/18 07:29 07/25/18 07:29 07/25/18 07:29 07/25/18 07:29 Laboratory Results - last 24 hr 07/24/18 05:06: TSH 0.47 07/25/18 07:15: Sodium 146 H, Potassium 2.8 L*, Chloride 115 H, Carbon Dioxide 22, Anion Gap 11.8, BUN 9 D, Creatinine 1.12 H, Estimated Creat Clear 76, Estimated GFR 54 L, Est GFR ( Amer) 66 D, Glucose 96, Calcium 8.1 L, Total Bilirubin 0.4, AST 8 L D, ALT 13, Alkaline Phosphatase 80, Total Protein 6.5 D, Albumin 2.6 L D, Globulin 3.9 H, Albumin/Globulin Ratio 0.7 L I & O for Last 24 hours: Intake & Output 07/22/18 07/23/18 07/24/18 07/25/18 11:59 11:59 11:59 11:59 Intake Total 1999 / 1999 2446 / 2446 Output Total 500 / 500 Balance 1500 / 1500 2446 / 2446 Weight 155 lb 5 oz 155 lb 5.015 oz Microbiology Reports for the Last 24 Hours: Microbiology 07/23/18 20:41 Abdomen Gram Stain - Final 07/23/18 20:41 Abdomen Wound Culture - Preliminary Gram Positive Cocci 07/23/18 20:41 Urine,Random Urine Culture - Final Escherichia coli Assessment and Plan (1) Acute gastroenteritis Current visit: Yes Status: Acute Category: Medical Code(s): K52.9 - Noninfective gastroenteritis and colitis, unspecified (2) Hypokalemia Current visit: Yes Status: Acute Category: Medical Code(s): E87.6 - Hypokalemia (3) Atypical chest pain Current visit: No Status: Acute Category: Medical Code(s): R07.89 - Other chest pain (4) Bartter syndrome Current visit: No Status: Chronic Category: Medical Code(s): E26.81 - Bartter's syndrome (5) Bipolar disorder Current visit: No Status: Chronic Category: Medical Code(s): F31.9 - Bipolar disorder, unspecified (6) E. coli urinary tract infection Current visit: Yes Status: Acute Category: Medical Code(s): N39.0 - Urinary tract infection, site not specified; B96.20 - Unspecified Escherichia coli [E. coli] as the cause of diseases classified elsewhere - Assessment and plan all Dx Assessment and Plan for all problems:: I agree with above attestation.
[2018-07-26 07:43] LABS: Basophils % 0.4 % (0.1-2.0); Eosinophils # 0.2 K/mm3 (0.0-0.4); Eosinophils % 2.4 % (0.1-12.0); Hematocrit 37.5 % (37.0-47.0); Hemoglobin 12.1 g/dL (12.2-16.2); Lymphocytes # 3.4 K/mm3 (0.7-4.5); Lymphocytes % 42.2 K/mm3 (10-50); Mean Corpuscular HGB Conc 32.1 g/dL (31.8-35.4); Mean Corpuscular Hemoglobin 28.5 pg (27.0-31.2); Mean Corpuscular Volume 88.5 fl (81-99); Mean Platelet Volume 8.6 fl (7.4-10.4); Monocytes # 0.4 K/mm3 (0.1-1.0); Monocytes % 5.1 % (1.7-9.3); Neutrophils % 49.9 % (37.0-80.0); Platelet Count 254 K/mm3 (142-424); Red Blood Count 4.24 M/mm3 (4.20-5.40); Red Cell Distribution Width 13.8 % (11.5-17.5)
--- NOTE | 2018-07-26 07:48 | Progress Note ---
<Esme Sumner - Last Filed: 07/26/18 07:45> Internal Medicine - PN: Subj *Date: 07/26/18 *Time: 07:45 Interval history: Patient states she did sleep better last night. She has no nausea and has not vomited for 24 hours. She is eating food without difficulty. She loves her Mountain Dew. She had a PICC line placed yesterday for her IV potassium. She received 4 rounds after which her potassium was normal. A.m. labs are pending. She did receive 1 dose of Rocephin IV. She can now take her pills because her stomach no longer hurts. Culture from abdominal wound showed MRSA. Exam Vital signs and Labs for Last 24 Hours: Temp Pulse Resp BP Pulse Ox 98.2 F 62 14 110/45 96 07/26/18 04:00 07/26/18 04:00 07/26/18 04:00 07/26/18 04:00 07/26/18 04:00 Laboratory Results - last 24 hr 07/25/18 07:15: Sodium 146 H, Potassium 2.8 L*, Chloride 115 H, Carbon Dioxide 22, Anion Gap 11.8, BUN 9 D, Creatinine 1.12 H, Estimated Creat Clear 76, Estimated GFR 54 L, Est GFR ( Amer) 66 D, Glucose 96, Calcium 8.1 L, Total Bilirubin 0.4, AST 8 L D, ALT 13, Alkaline Phosphatase 80, Total Protein 6.5 D, Albumin 2.6 L D, Globulin 3.9 H, Albumin/Globulin Ratio 0.7 L 07/25/18 11:15: Stl Aeromonas (PCR) Not detected, Stl C. cayetanensis PCR Not detected, Stool Rotavirus (PCR) Not detected, Stl Adenov F 40/41 PCR Not detected, Stool Astrovirus (PCR) Not detected, Stool Campylobacter PCR Not detected, Stl C.difficile Tox PCR Not detected, Stool Cryptosporidium PCR Not de tected, Stl E.coli Shiga Tox PCR Not detected, Stool E coli O157 PCR Not detected, Stl Enterotoxigenic E PCR Not detected, Stool EPEC (PCR) Not detected, Stool EAEC (PCR) Not detected, Stl E. histolytica PCR Not detected, Stool Giardia Lamblia PCR Not detected, Stool Salmonella PCR Not detected, Stool Sapovirus (PCR) Not detected, Stl P. shigelloides PCR Not detected, Stl Shigella/EIEC PCR Not detected, St Y.enterocolitica PCR Not detected, Stool Vibrio (PCR) Not detected, Stl Vibrio cholerae PCR Not detected, Stl Norovirus GI/GII PCR Not detected 07/25/18 16:04: Potassium 3.6 D 07/25/18 23:13: Potassium 3.7 I & O for Last 24 hours: Intake & Output 07/23/18 07/24/18 07/25/18 07/26/18 11:59 11:59 11:59 11:59 Intake Total 1999 / 1999 2446 / 2446 960 / 960 Output Total 500 / 500 1600 / 1600 Balance 1500 / 1500 2446 / 2446 -640 / -640 Weight 155 lb 5 oz 155 lb 5.015 oz Microbiology Reports for the Last 24 Hours: Microbiology 07/23/18 20:41 Abdomen Gram Stain - Final 07/23/18 20:41 Abdomen Wound Culture - Final Staphylococcus aureus 07/23/18 20:41 Blood Blood Culture - Preliminary NO GROWTH AFTER 48 HOURS 07/23/18 20:41 Blood Blood Culture - Preliminary NO GROWTH AFTER 48 HOURS 07/23/18 20:41 Urine,Random Urine Culture - Final Escherichia coli - Constitutional no acute distress Comments: Awakened for exam - *Routine Respiratory Exam Present: CTA bilaterally (Anteriorly and posteriorly) - *Routine Cardiovascular Exam Present: RRR - *Routine Abdominal Exam Present: soft, normoactive bowel sounds. Absent: tenderness, distended - *Routine Extremities Exam Absent: edema, calf tenderness - *Routine Skin Exam Comments: Abdominal wound is healed. It is dry and without erythema or edema. Assessment and Plan (1) Acute gastroenteritis Current visit: Yes Status: Acute Category: Medical Code(s): K52.9 - Noninfective gastroenteritis and colitis, unspecified (2) Hypokalemia Current visit: Yes Status: Acute Category: Medical Code(s): E87.6 - Hypokalemia (3) Atypical chest pain Current visit: No Status: Acute Category: Medical Code(s): R07.89 - Other chest pain (4) Bartter syndrome Current visit: No Status: Chronic Category: Medical Code(s): E26.81 - Bartter's syndrome (5) Bipolar disorder Current visit: No Status: Chronic Category: Medical Code(s): F31.9 - Bipolar disorder, unspecified (6) E. coli urinary tract infection Current visit: Yes Status: Acute Category: Medical Code(s): N39.0 - Urinary tract infection, site not specified; B96.20 - Unspecified Escherichia coli [E. coli] as the cause of diseases classified elsewhere (7) Infection of wound due to methicillin resistant Staphylococcus aureus (MRSA) Current visit: Yes Status: Resolved Category: Medical Code(s): A49.02 - Methicillin resistant Staphylococcus aureus infection, unspecified site - Assessment and plan all Dx Assessment and Plan for all problems:: We will change antibiotic from IV to p.o. Bactrim. Patient states she can swallow pills now. Await lab results. <Caitlin Wolfe - Last Filed: 07/26/18 08:48> Exam Vital signs and Labs for Last 24 Hours: Temp Pulse Resp BP Pulse Ox 97.0 F L 53 L 16 107/52 100 07/26/18 08:00 07/26/18 08:00 07/26/18 08:00 07/26/18 08:00 07/26/18 08:00 Laboratory Results - last 24 hr 07/25/18 11:15: Stl Aeromonas (PCR) Not detected, Stl C. cayetanensis PCR Not detected, Stool Rotavirus (PCR) Not detected, Stl Adenov F 40/41 PCR Not detected, Stool Astrovirus (PCR) Not detected, Stool Campylobacter PCR Not detected, Stl C.difficile Tox PCR Not detected, Stool Cryptosporidium PCR Not detected, Stl E.coli Shiga Tox PCR Not detected, Stool E coli O157 PCR Not detected, Stl Enterotoxigenic E PCR Not detected, Stool EPEC (PCR) Not detected, Stool EAEC (PCR) Not detected, Stl E. histolytica PCR Not detected, Stool Giardia Lamblia PCR Not detected, Stool Salmonella PCR Not detected, Stool Sapovirus (PCR) Not detected, Stl P. shigelloides PCR Not detected, Stl Shigella/EIEC PCR Not detected, St Y.enterocolitica PCR Not detected, Stool Vibrio (PCR) Not detected, Stl Vibrio cholerae PCR Not detected, Stl Norovirus GI/GII PCR Not detected 07/25/18 16:04: Potassium 3.6 D 07/25/18 23:13: Potassium 3.7 07/26/18 07:25: WBC 8.0 D, RBC 4.24, Hgb 12.1 L, Hct 37.5, MCV 88.5, MCH 28.5, MCHC 32.1, RDW 13.8, Plt Count 254 D, MPV 8.6, Neut % (Auto) 49.9, Lymph % (Auto) 42.2, [place] % (Auto) 5.1, Eos % (Auto) 2.4, Baso % (Auto) 0.4, Neut # (Auto) 4.0, Lymph # (Auto) 3.4, [place] # (Auto) 0.4, Eos # (Auto) 0.2, Baso # (Auto) 0.0 07/26/18 07:25: Sodium 143, Potassium 4.1, Chloride 114 H, Carbon Dioxide 20 L, Anion Gap 13.1, BUN 5 L D, Creatinine 1.14 H, Estimated Creat Clear 74, Estimated GFR 53 L, Est GFR ( Amer) 65, Glucose 82, Calcium 8.7 Laboratory Tests 07/24/18 07/26/18 05:06 07:25 Potassium 2.4 L* 4.1 I & O for Last 24 hours: Intake & Output 07/23/18 07/24/18 07/25/18 07/26/18 11:59 11:59 11:59 11:59 Intake Total 1999 / 1999 2446 / 2446 4385 / 4385 Output Total 500 / 500 1600 / 1600 Balance 1500 / 1500 2446 / 2446 2785 / 2785 Weight 155 lb 5 oz 155 lb 5.015 oz Microbiology Reports for the Last 24 Hours: Microbiology 07/23/18 20:41 Abdomen Gram Stain - Final 07/23/18 20:41 Abdomen Wound Culture - Final Staphylococcus aureus 07/23/18 20:41 Blood Blood Culture - Preliminary NO GROWTH AFTER 48 HOURS 07/23/18 20:41 Blood Blood Culture - Preliminary NO GROWTH AFTER 48 HOURS 07/23/18 20:41 Urine,Random Urine Culture - Final Escherichia coli Assessment and Plan (1) Acute gastroenteritis Current visit: Yes Status: Acute Category: Medical Code(s): K52.9 - Noninfective gastroenteritis and colitis, unspecified (2) Hypokalemia Current visit: Yes Status: Acute Category: Medical Code(s): E87.6 - Hypokalemia (3) Atypical chest pain Current visit: No Status: Acute Category: Medical Code(s): R07.89 - Other chest pain (4) Bartter syndrome Current visit: No Status: Chronic Category: Medical Code(s): E26.81 - Bartter's syndrome (5) Bipolar disorder Current visit: No Status: Chronic Category: Medical Code(s): F31.9 - Bipolar disorder, unspecified (6) E. coli urinary tract infection Current visit: Yes Status: Acute Category: Medical Code(s): N39.0 - Urinary tract infection, site not specified; B96.20 - Unspecified Escherichia c virgil [E. coli] as the cause of diseases classified elsewhere (7) Infection of wound due to methicillin resistant Staphylococcus aureus (MRSA) Current visit: Yes Status: Resolved Category: Medical Code(s): A49.02 - Methicillin resistant Staphylococcus aureus infection, unspecified site - Assessment and plan all Dx Assessment and Plan for all problems:: Given patient's Briones syndrome, we will switch the PO abx to levaquin. Will dc home today. Patient to follow-up with me in office in a week.
[2018-07-26 07:52] LABS: Anion Gap 13.1 mEq/L (5-15); Calcium 8.7 mg/dL (8.5-10.1)
[2018-07-26 07:54] LABS: Potassium 4.1 mmoL/L (3.5-5.1)
--- NOTE | 2018-07-26 21:36 | Discharge Summary ---
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 Is characterized by low potassium levels and increased pH plus low to normal blood pressure. She is a patient of Dr. Esteves in [facility]. She has not seen him recently. She was hospitalized in June at [facility] for 3 or 4 days. Her manager forms is Dr. Isaacs. She presented in the emergency room because of nausea and vomiting and suspecting low potassium. She takes 40 mEq of potassium daily 3 times a day or 4 times a day if she needs it when her potassium is low. She was at a constitution party Tuesday. She is to taking an Adderall. She admits to taking hydrocodone. She says that she does not take illicit drugs on a regular basis. She has had some diarrhea and has had lots of vomiting. She was to emergency room with a run of potassium and was admitted. Her potassium remains low this morning at 2.4. She is very agitated and continues to retch and heave. Hospital Course Hospital Course: She was started on high doses of potassium and her spironolactone was increased to twice a day. Diazepam was added due to her agitated state. She had no further nausea, vomiting, or diarrhea during the night. Her IV did come out and nurses were unable to restart after several sticks. She refused p.o. potassium and some of her other meds d/t abdominal pain. She was found to have an E. coli urinary tract infection. She was agreeable to PICC line placement. She then got IV fluids and IV potassium through the PICC. She received 4 rounds of potassium after which her potassium was normal. She received 1 dose of Rocephin IV. She stated she could take her pills because her stomach pain resolved. The culture from her abdominal wound showed MRSA. Her antibiotics were changed from IV to p.o. Bactrim. Given patient's Briones syndrome, her PO abx were then switched to levaquin. She was stable to be discharged home. Objective Vital signs: Temp Pulse Resp BP Pulse Ox 97.0 F L 53 L 16 107/52 100 07/26/18 08:00 07/26/18 08:00 07/26/18 08:00 07/26/18 08:00 07/26/18 08:00 Narrative: - Constitutional moderate distress, agitated Comments: retches - *Routine HEENT Exam Head: Present: normocephalic Eye: Present: PERRL ENT: Present: mucous membranes moist - *Routine Neck Exam Present: supple - Routine Chest/Breast/Axilla Exam Axillae: Absent: lymphadenopathy, tenderness, rashes - *Routine Respiratory Exam Present: CTA bilaterally - *Routine Cardiovascular Exam Present: RRR Comments: No ectopics noted - *Routine Abdominal Exam Present: soft. Absent: tenderness Comments: A few scattered erythematous lesions. - *Routine Rectal Exam Comments: deferred - *Routine Exam Comments: Not examined - *Routine Extremities Exam Absent: edema Comments: Tattoo of the foot - Routine Back/Spine/Pelvis Exam Back/Spine: Absent: paraspinal tenderness - *Routine Skin Exam Present: pallor, rash - *Routine Neurological Exam Present: oriented X3, moving all extremities. Absent: motor deficit Agitated Results Labs on day of discharge: Labs from last 24 hours 07/26/18 07/26/18 07/25/18 07:25 07:25 23:13 WBC 8.0 D RBC 4.24 Hgb 12.1 L Hct 37.5 MCV 88.5 MCH 28.5 MCHC 32.1 RDW 13.8 Plt Count 254 D MPV 8.6 Neut % (Auto) 49.9 Lymph % (Auto) 42.2 Sampson % (Auto) 5.1 Eos % (Auto) 2.4 Baso % (Auto) 0.4 Neut # (Auto) 4.0 Lymph # (Auto) 3.4 Sampson # (Auto) 0.4 Eos # (Auto) 0.2 Baso # (Auto) 0.0 Sodium 143 Potassium 4.1 3.7 Chloride 114 H Carbon Dioxide 20 L Anion Gap 13.1 BUN 5 L D Creatinine 1.14 H Estimated Creat Clear 74 Estimated GFR 53 L Est GFR ( Amer) 65 Glucose 82 Calcium 8.7 Preliminary micro results at discharge 07/23/18 20:41 Blood Culture - Preliminary Blood NO GROWTH AFTER 48 HOURS 07/23/18 20:41 Blood Culture - Preliminary Blood NO GROWTH AFTER 48 HOURS DS: Diagnosis - Discharge Diagnosis (1) Acute gastroenteritis Status: Acute (2) Hypokalemia Status: Acute (3) Atypical chest pain Status: Acute (4) Bartter syndrome Status: Chronic (5) Bipolar disorder Status: Chronic (6) E. coli urinary tract infection Status: Acute (7) Infection of wound due to methicillin resistant Staphylococcus aureus (MRSA) Status: Resolved Discharge Plan - Patient Discharge Instructions ACTIVITY: Continue current activity DIET: continue same diet Patient Instructions: High-Potassium Diet - Follow up Plan Follow up with: Caitlin Wolfe MD [Staff Physician] - 1 week Disposition: Home, Self-Jail Medications: Home Medications Medication Instructions Recorded Confirmed Type Gabapentin [Gabapentin 800mg Tab] 800 mg PO TID 11/28/17 07/23/18 History OLANZapine [Zyprexa 5mg tablet] 5 mg PO HS 11/28/17 07/23/18 History Omeprazole Magnesium [Prilosec Otc 20 mg PO DAILY 11/28/17 07/23/18 History 20mg Tab] Ondansetron HCl [Zofran 4mg Tab] 4 mg PO BID 11/28/17 07/23/18 History Potassium Chloride [Pot Chlor 20 40 meq PO QID 11/28/17 07/23/18 History mEq Tab] Spironolactone [Aldactone 25mg 25 mg PO DAILY 11/28/17 07/23/18 History Tab] Doxepin HCl 100 mg PO HS 04/13/18 07/23/18 History raNITIdine HCl [Ranitidine HCl] 150 mg PO NEEDED PRN 04/13/18 07/23/18 History Fluticasone/Vilanterol [Breo 1 puff IH DAILY 07/24/18 07/24/18 History Ellipta 200-25 Mcg INH] Prescriptions/Medication Reconciliation: New levoFLOXacin [Levaquin 500mg tab] 500 mg PO DAILY #5 tab Ondansetron HCl [Zofran 4mg Tab] 4 mg PO BID #14 tab Spironolactone [Aldactone 25mg Tab] 25 mg PO BID #60 tablet Continue Gabapentin [Gabapentin 800mg Tab] 800 mg PO TID OLANZapine [Zyprexa 5mg tablet] 5 mg PO HS Ondansetron HCl [Zofran 4mg Tab] 4 mg PO BID Omeprazole Magnesium [Prilosec Otc 20mg Tab] 20 mg PO DAILY Potassium Chloride [Pot Chlor 20 mEq Tab] 40 meq PO QID Spironolactone [Aldactone 25mg Tab] 25 mg PO DAILY Doxepin HCl 100 mg PO HS raNITIdine HCl [Ranitidine HCl] 150 mg PO NEEDED PRN PRN Reason: Gi Upset Fluticasone/Vilanterol [Breo Ellipta 200-25 Mcg INH] 1 puff IH DAILY
== END 2018-07-26 09:30 | disposition home or self-care (01) ==
LOC: 2ND 20:09 → ER 20:09 → 2ND 22:53
PROVIDERS: ADMIT Family Medicine; ATTEND Emergency Medicine

== ENCOUNTER 2019-01-28 10:02 | Inpatient (IN) ==
[2019-01-28 10:25] LABS: Basophils # 0.1 K/mm3 (0-0.2); Basophils % 0.4 % (0.1-2.0); Eosinophils # 0.1 K/mm3 (0.0-0.4); Hematocrit 43.2 % (37.0-47.0); Lymphocytes # 4.4 K/mm3 (0.7-4.5); Lymphocytes % 33.7 % (10-50); Mean Corpuscular HGB Conc 34.7 g/dL (31.8-35.4); Mean Corpuscular Hemoglobin 29.2 pg (27.0-31.2); Mean Platelet Volume 7.9 fl (7.4-10.4); Monocytes # 0.7 K/mm3 (0.1-1.0); Neutrophils # 7.8 K/mm3 (1.8-7.8); Neutrophils % 59.9 % (37.0-80.0); Platelet Count 444 K/mm3 (142-424); Red Blood Count 5.15 M/mm3 (4.20-5.40); Red Cell Distribution Width 14.3 % (11.5-17.5); White Blood Count 13.1 K/mm3 (4.8-10.8)
[2019-01-28 10:38] LABS: Alanine Aminotransferase 16 U/L (12-78); Albumin Level 3.4 gm/dL (3.4-5.0); Albumin/Globulin Ratio 0.7 (1.1-1.8); Alkaline Phosphatase 107 U/L (46-116); Anion Gap 17.2 mEq/L (5-15); Aspartate Amino Transferase 6 U/L (15-37); Bilirubin,Total 0.2 mg/dL (0.2-1.0); Blood Urea Nitrogen 16 mg/dL (7-18); Calcium 9.1 mg/dL (8.5-10.1); Carbon Dioxide 17 mmol/L (21.0-32.0); Chloride 108 mmol/L (98-107); Glucose 103 mg/dL (74-106); Sodium 140 mmol/L (136-145); Total Protein,Serum 8.4 gm/dL (6.4-8.2)
--- NOTE | 2019-01-28 10:38 | Emergency Department Note ---
ED Disposition Clinical Impression: Hypokalemia, Bartters syndrome Disposition: Admitted as Observation Condition on Discharge: Good Time of Disposition: 11:01 - Critical Care Critical Care Time: No Attestation: On 01/28/19, the high probability of a clinically significant, sudden or life threatening deterioration of the following system(s) required my full and direct attention, intervention and personal management. The time I documented below is in addition to time spent performing reported procedures but includes the following listed in this critical care notation. Medical Decision Making - Medical Records Medical records reviewed: Yes: I reviewed the patient's medical records. - Guille Inquiry Pt receiving controlled substance: No Guille was queried for this patient: No Vital Signs: 01/28/19 09:59 01/28/19 10:51 Temperature 98.2 F Temperature Source Oral Pulse Rate [Right Brachial] 87 89 Respiratory Rate 17 Blood Pressure [Right Arm] 121/76 110/81 Blood Pressure Mean [Right Arm] 91 90 Blood Pressure Source [Right Arm] Automatic Cuff Blood Pressure Position [Right Arm] Sitting 02 Sat by Pulse Oximetry 100 98 Oxygen Delivery Method Room Air - Lab Data Lab results reviewed: Yes: I reviewed the patient's lab results. Lab Results 01/28/19 10:13: WBC 13.1 H, RBC 5.15, Hgb 15.0, Hct 43.2, MCV 84.0, MCH 29.2, MCHC 34.7, RDW 14.3, Plt Count 444 H, MPV 7.9, Neut % (Auto) 59.9, Lymph % (Auto) 33.7, Gilchrist % (Auto) 5.0, Eos % (Auto) 1.0, Baso % (Auto) 0.4, Neut # (Auto) 7.8, Lymph # (Auto) 4.4, Gilchrist # (Auto) 0.7, Eos # (Auto) 0.1, Baso # (Auto) 0.1 01/28/19 10:13: Sodium 140, Potassium 2.2 L*, Chloride 108 H, Carbon Dioxide 17 L, Anion Gap 17.2 H, BUN 16, Creatinine 1.13 H, Estimated Creat Clear 70, Estimated GFR 54 L, Est GFR ( Amer) 65, Glucose 103, Calcium 9.1, Phosphorus 1.8 L, Magnesium 2.0, Total Bilirubin 0.2, AST 6 L, ALT 16, Alkaline Phosphatase 107, Troponin I < 0.02, Total Protein 8.4 H D, Albumin 3.4, Globulin 5.0 H, Albumin/Globulin Ratio 0.7 L Result diagrams: 01/28/19 10:13 01/28/19 10:13 Orders (Tests/Meds): ED MEDICATIONS Generic Name Dose Route Start Last Admin Trade Name Freq PRN Reason Stop Dose Admin Potassium Chloride/Water 100 mls @ 50 mls/hr 01/28/19 10:48 01/28/19 11:10 Potassium Chloride 20meq/100ml Ivpb IV 01/28/19 12:47 50 mls/hr ONCE ONE Administration Discontinued Medications Generic Name Dose Route Start Last Admin Trade Name Freq PRN Reason Stop Dose Admin Oxycodone/Acetaminophen 1 each 01/28/19 10:32 01/28/19 10:37 Percocet 7.5/325mg Tablet PO 01/28/19 10:33 1 each ONCE ONE Administration ORDERS Category Date Time Status Chest XR 2 view (NOT portable) [XR chest 2V] Stat Exams 01/28/19 10:03 Taken EKG Request [ECG Request by /Miles] Stat Y 01/28/19 10:45 Ordered - ECG Data Tracing #1 ECG initial impression date: 01/28/19 ECG initial impression time: 10:54 Normal Sinus Rhythm: Yes Conduction abnormalities present: QT prolongation - Physician Consults Physician Consulted: ashleigh Time: 11:14 Reason -: Admission, Pt condition General Adult HPI - General Chief complaint: Weakness Stated complaint: muscle spasms Time Seen by Provider: 01/28/19 10:28 Mode of Arrival: Ambulatory Source of Information: Patient Limitations: No Limitations Description of Symptoms (Recalled from ER Triage Doc. by RN): history of hypokalemia; presents today with muscle cramps and pain - History of Present Illness HPI narrative: weakness in legs, spasms and pain. history of severe hypokalemia - Related Data Home Medications Medication Instructions Recorded Confirmed Gabapentin [Gabapentin 800mg Tab] 800 mg PO TID 11/28/17 07/23/18 OLANZapine [Zyprexa 5mg tablet] 5 mg PO HS 11/28/17 07/23/18 Omeprazole Magnesium [Prilosec Otc 20 mg PO DAILY 11/28/17 07/23/18 20mg Tab] Ondansetron HCl [Zofran 4mg Tab] 4 mg PO BID 11/28/17 07/23/18 Potassium Chloride [Pot Chlor 20 40 meq PO QID 11/28/17 07/23/18 mEq Tab] Spironolactone [Aldactone 25mg 25 mg PO DAILY 11/28/17 07/23/18 Tab] Doxepin HCl 100 mg PO HS 04/13/18 07/23/18 raNITIdine HCl [Ranitidine HCl] 150 mg PO NEEDED PRN 04/13/18 07/23/18 Fluticasone/Vilanterol [Breo 1 puff IH DAILY 07/24/18 07/24/18 Ellipta 200-25 Mcg INH] Previous Rx's Medication Instructions Recorded Ondansetron HCl [Zofran 4mg Tab] 4 mg PO BID #14 tab 07/26/18 Spironolactone [Aldactone 25mg 25 mg PO BID #60 tablet 07/26/18 Tab] levoFLOXacin [Levaquin 500mg 500 mg PO DAILY #5 tab 07/26/18 tab] Allergies Allergy/AdvReac Type Severity Reaction Status Date / Time Penicillins [PENICILLINS] Allergy Mild Verified 11/28/17 19:33 lorazepam [From Ativan] AdvReac Verified 07/23/18 20:38 [facility] History - Hepatitis A Screen Drug use history?: No High risk sexual behaviors?: No History of sexually transmitted infection?: No Currently employed?: No Childcare worker?: No Do you have indoor plumbing?: Yes Do you have electricity?: Yes Attestation statement:: This patient has been screened for Hepatitis A risk factors. I have reviewed the patient's past medical history: Yes Medical History: Reports:: Anxiety Denies:: Cancer, Diabetes Mellitus Type 1, Diabetes Mellitus Type 2, MRSA Comment: Bipolar, Bartter Syndrome Other Surgeries: Yes: Appendectomy, Cholecystectomy, Other (tubal) Amputation: No Fractures: No - Social History Smoking Status: Current every day smoker Tobacco Type: cigarettes # Packs/Day (cigarettes): 1 #Yrs smoked (if former smoker): 20 Alcohol Intake: never Alcohol Intake Frequency:: holidays/special occasions only Substance Use Type: opiates Occupational Status: disabled Housing: house Household Members: family - Psychiatric History Pschychiatric History:: Reports:: Anxiety Family Hx:: Unable to obtain ROS Obtained: Yes All systems reviewed & no additional complaints - Constitutional Constitutional: Denies system reviewed and no additional complaints, except as docu, Denies fever(s) - Eyes Eyes: Denies change in vision - ENT Ears, Nose, Mouth, and Throat: Reports system reviewed and no additional complaints, except as docu, Denies throat swelling - Cardiovascular Cardiovascular: Denies chest pain, Denies edema - Respiratory Respiratory: Yes system reviewed and no additional complaints, except as docu, No chest congestion, No dyspnea - Gastrointestinal Gastrointestingal: Denies: abdominal pain, diarrhea, nausea, vomiting - Genitourinary Female Genitourinary: Denies dysuria - Musculoskeletal Musculoskeletal: Reports system reviewed and no additional complaints, except as docu, Reports muscle aches - Integumentary/Breasts Skin/Breast: Denies rash - Neurologic Neurologic: Reports system reviewed and no additional complaints, except as docu, Reports tremor(s), Reports weakness - Hematologic/Lymphatic Henatologic/Lymphatic: Denies easy bleeding, Denies easy bruising Physical Exam - General General appearance: alert, in no apparent distress - Head Head exam: atraumatic, normocephalic, normal inspection - Eye Eye exam: Present: normal appearance, PERRL, EOMI - ENT ENT exam: Present: normal exam, normal oropharynx, mucous membranes moist, TM's normal bilaterally, normal external ear exam - Neck Neck exam: Present: normal inspection, full ROM, trachea midline. Absent: meningismus, lymphadenopathy - Chest Chest inspection: Present: normal inspection, symmetric chest wall rise. Absent: tenderness - Respiratory Respiratory exam: Present: normal lung sounds bilaterally. Absent: respiratory distress - Cardiovascular Cardiovascular exam: Present: regular rate, normal rhythm. Absent: JVD - Neurological Exam Neurological exam: Present: alert, oriented X3, CN II-XII intact - Skin Skin exam: Present: warm, dry. Absent: rash
[2019-01-28 10:42] LABS: Phosphorous 1.8 mg/dL (2.4-4.9)
[2019-01-28 10:43] LABS: Potassium 2.2 mmoL/L (3.5-5.1)
--- NOTE | 2019-01-28 16:22 | History & Physical Report ---
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 The syndrome is characterized by low potassium levels and increased pH plus low to normal blood pressure. She is normally a patient of Dr. Saturnino Esteves in [facility]. She states that she was last hospitalized in October at [place]. Her licensed bondsman is Dr. Isaacs but she has not seen him recently. She presented in the emergency room at [facility] complaining of nausea and muscle cramps. She suspects that her potassium is low. She has received a run of potassium in the emergency room and has been admitted. Her potassium was 2.2 in the emergency room. She feels anxious and agitated. She complains of muscle pain. She is aware of some occasional heart dysrhythmia. She has borderline personality disorder and takes olanzapine 5 mg at bedtime. She has GERD and has been on omeprazole and and ranitidine. Regarding her Bartter syndrome, she takes spironolactone 25 mg daily and usually takes 40 mEq of potassium 3 or 4 times a day. When she was here in July her urine was positive for amphetamines and benzodiazepines and also opiates. 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, kidney stone removal) Amputation: No Fractures: No - *Social History Educational Level: Attended High School Smoking Status: Current every day smoker Tobacco Type: cigarettes # Packs/Day (cigarettes): 1 #Yrs smoked (if former smoker): 20 Alcohol Intake: current Alcohol Intake Frequency:: holidays/special occasions only Substance Use Type: opiates *Occupational Status:: disabled Housing: house Household Members: family *Travel in the last 8 weeks: None - Psychiatric History Expresses thoughts of harming self/others: None Suicide Plan Description: No Plan Pschychiatric History:: Reports:: Anxiety Family Hx:: Coronary Artery Disease, Diabetes, Heart Attack, Hyperlipidemia, Hypertension, Stroke Comment: There is a strong family history of heart disease in her maternal and paternal grandmothers as well as her father who at age 56 apparently of heart disease. Her mother at age 47 and the patient wonders if she might have been a victim of Bartter syndrome. The patient has 1 brother and 1 sister. She has 2 boys 13 and 19 years old. Review of Systems - Constitutional Reports body ache(s), Reports weakness - Eyes Denies change in vision - ENT Denies abnormal hearing - *Cardiovascular Denies shortness of breath Comments: Aware of occasional ectopics. - *Respiratory Denies chest congestion - *Gastrointestinal Reports abdominal pain (Some) - *Genitourinary Denies abnormal vaginal bleeding - *Musculoskeletal Reports muscle cramps, Reports muscle weakness, Reports body aches - *Neurologic Reports tremor(s), Reports weakness - Psychiatric Reports anxiety Meds Home Medications Medication Instructions Recorded Confirmed Type Gabapentin [Gabapentin 800mg Tab] 800 mg PO TID 11/28/17 01/28/19 History OLANZapine [Zyprexa 5mg tablet] 5 mg PO HS 11/28/17 01/28/19 History Omeprazole Magnesium [Prilosec Otc 20 mg PO DAILY 11/28/17 01/28/19 History 20mg Tab] Potassium Chloride [Pot Chlor 20 20 meq PO QID 11/28/17 01/28/19 History mEq Tab] Spironolactone [Aldactone 25mg 25 mg PO DAILY 11/28/17 01/28/19 History Tab] Doxepin HCl 100 mg PO HS 04/13/18 01/28/19 History Fluticasone/Vilanterol [Breo 1 puff IH DAILY 07/24/18 01/28/19 History Ellipta 200-25 Mcg INH] OLANZapine [Olanzapine] 10 mg PO HS 01/28/19 01/28/19 History Ondansetron HCl [Ondansetron 4mg 4 mg PO Q8HP PRN 01/28/19 01/28/19 History Tablet] Potassium Citrate [Potassium 15 meq PO TID 01/28/19 01/28/19 History Citrate ER] Sodium Bicarbonate [Sodium 650 mg PO QID 03/10/19 03/10/19 History Bicarbonate 650mg Tablet] Allergies Allergy/AdvReac Type Severity Reaction Status Date / Time Penicillins [PENICILLINS] Allergy Mild Verified 11/28/17 19:33 lorazepam [From Ativan] AdvReac Verified 07/23/18 20:38 Exam Vital signs and Labs for Last 24 Hours: Temp Pulse Resp BP Pulse Ox 97.8 F 75 15 103/63 L 97 01/28/19 16:00 01/28/19 16:00 01/28/19 16:00 01/28/19 16:00 01/28/19 16:00 Laboratory Results - last 24 hr 01/28/19 10:13: WBC 13.1 H, RBC 5.15, Hgb 15.0, Hct 43.2, MCV 84.0, MCH 29.2, MCHC 34.7, RDW 14.3, Plt Count 444 H, MPV 7.9, Neut % (Auto) 59.9, Lymph % (Auto) 33.7, Fountain % (Auto) 5.0, Eos % (Auto) 1.0, Baso % (Auto) 0.4, Neut # (Auto) 7.8, Lymph # (Auto) 4.4, Fountain # (Auto) 0.7, Eos # (Auto) 0.1, Baso # (Auto) 0.1 01/28/19 10:13: Sodium 140, Potassium 2.2 L*, Chloride 108 H, Carbon Dioxide 17 L, Anion Gap 17.2 H, BUN 16, Creatinine 1.13 H, Estimated Creat Clear 70, Estimated GFR 54 L, Est GFR ( Amer) 65, Glucose 103, Calcium 9.1, Phosphorus 1.8 L, Magnesium 2.0, Total Bilirubin 0.2, AST 6 L, ALT 16, Alkaline Phosphatase 107, Troponin I < 0.02, Total Protein 8.4 H D, Albumin 3.4, Globulin 5.0 H, Albumin/Globulin Ratio 0.7 L I & O for Last 24 hours: Intake & Output 01/26/19 01/27/19 01/28/19 01/29/19 10:59 10:59 11:59 11:59 Intake Total 1979 Balance 1979 Weight 150 lb - Constitutional no acute distress - *Routine HEENT Exam Head: Present: normocephalic Eye: Present: PERRL ENT: Present: mucous membranes moist - *Routine Neck Exam Present: supple, full ROM - Routine Chest/Breast/Axilla Exam Chest wall: Absent: tenderness - *Routine Respiratory Exam Present: CTA bilaterally - *Routine Cardiovascular Exam Present: RRR - *Routine Abdominal Exam Present: soft. Absent: tenderness, organomegaly - *Routine Extremities Exam Absent: edema - *Routine Neurological Exam Present: alert, oriented X3, moving all extremities, normal tone - Routine Psychiatric Exam Present: normal thought process, anxious Assessment and Plan (1) Hypokalemia Current visit: Yes Status: Acute Category: Medical Code(s): E87.6 - Hyp okalemia (2) Bartter syndrome Current visit: Yes Status: Chronic Category: Medical Code(s): E26.81 - Bartter's syndrome
[2019-01-29 06:45] LABS: Eosinophils # 0.3 K/mm3 (0.0-0.4); Mean Corpuscular HGB Conc 33.4 g/dL (31.8-35.4); Mean Corpuscular Hemoglobin 28.7 pg (27.0-31.2); Mean Platelet Volume 8.3 fl (7.4-10.4); Monocytes # 0.5 K/mm3 (0.1-1.0)
[2019-01-29 06:48] LABS: Anion Gap 17.2 mEq/L (5-15); Calcium 8.5 mg/dL (8.5-10.1)
[2019-01-29 06:53] LABS: Basophils # 0.1 K/mm3 (0-0.2); Basophils % 0.7 % (0.1-2.0); Eosinophils % 3.4 % (0.1-12.0); Hematocrit 39.5 % (37.0-47.0); Lymphocytes # 4.2 K/mm3 (0.7-4.5); Lymphocytes % 48.4 % (10-50); Mean Corpuscular Volume 85.9 fl (81-99); Monocytes % 5.6 % (1.7-9.3); Neutrophils # 3.6 K/mm3 (1.8-7.8); Platelet Count 345 K/mm3 (142-424); Red Cell Distribution Width 14.4 % (11.5-17.5); White Blood Count 8.6 K/mm3 (4.8-10.8)
[2019-01-29 06:56] LABS: Hemoglobin 13.2 g/dL (12.2-16.2)
[2019-01-29 07:05] LABS: Potassium 2.2 mmoL/L (3.5-5.1)
--- NOTE | 2019-01-29 07:36 | Pharmacy Consult Notes ---
[facility] Pharmacy VTE Monitoring - Patient Demographics Admission date: 01/28/19 Report Date: 01/29/19 Time: 07:36 Allergies/Adverse Reactions: Patient Allergies Penicillins [PENICILLINS] Allergy (Mild, Verified 11/28/17 19:33) lorazepam [From Ativan] Adverse Reaction (Verified 07/23/18 20:38) Height: 1.35 m Weight: 68.039 kg Patient Problems: Current Active Problems Hypokalemia (Acute) Bartter syndrome (Chronic) - VTE Risk Labs: VTE Related Lab Results Hgb 13.2 g/dL (12.2-16.2) D 01/29/19 05:55 Hct 39.5 % (37.0-47.0) 01/29/19 05:55 Plt Count 345 K/mm3 (142-424) 01/29/19 05:55 BUN 10 mg/dL (7-18) D 01/29/19 05:55 Creatinine 1.35 mg/dL (0.55-1.02) H 01/29/19 05:55 Estimated Creat Clear 61 mL/min (50-200) 01/29/19 05:55 Was VTE Risk Assessment Performed: Yes VTE Score: 1 VTE Risk Level: Very Low Risk - Prophylaxis VTE Prophylaxis Ordered?: Yes Types of VTE Prophylaxis: TEDS Knee High Location of Applied Device: Bilateral Lower Extremeties - VTE Diagnosis Confirmed Treatment or plan recommended: Continue Current Treatment
--- NOTE | 2019-01-29 08:25 | Progress Note ---
Internal Medicine - PN: Subj Interval history: Patient feels terrible this a.m. She aches all over especially in her legs. She wants more pain medicine. She states the pills are not working. Per nursing: She just had her [place]. She denies nausea and ate a good breakfast. She states she was finally able to rest. Potassium was 2.2 this morning. Given a stat p.o. dose of 40 mEq potassium and will receive 20 mEq IV. She will continue with her 20 mEq 3 times daily. Will repeat potassium 2 hours after her IV administration. Exam Vital signs and Labs for Last 24 Hours: Temp Pulse Resp BP Pulse Ox 98.5 F 77 18 101/64 L 99 01/29/19 04:00 01/29/19 04:00 01/29/19 04:00 01/29/19 04:00 01/29/19 04:00 Laboratory Results - last 24 hr 01/28/19 10:13: WBC 13.1 H, RBC 5.15, Hgb 15.0, Hct 43.2, MCV 84.0, MCH 29.2, MCHC 34.7, RDW 14.3, Plt Count 444 H, MPV 7.9, Neut % (Auto) 59.9, Lymph % (Auto) 33.7, [place] % (Auto) 5.0, Eos % (Auto) 1.0, Baso % (Auto) 0.4, Neut # (Auto) 7.8, Lymph # (Auto) 4.4, [place] # (Auto) 0.7, Eos # (Auto) 0.1, Baso # (Auto) 0.1 01/28/19 10:13: Sodium 140, Potassium 2.2 L*, Chloride 108 H, Carbon Dioxide 17 L, Anion Gap 17.2 H, BUN 16, Creatinine 1.13 H, Estimated Creat Clear 70, Estimated GFR 54 L, Est GFR ( Amer) 65, Glucose 103, Calcium 9.1, Phosphorus 1.8 L, Magnesium 2.0, Total Bilirubin 0.2, AST 6 L, ALT 16, Alkaline Phosphatase 107, Troponin I < 0.02, Total Protein 8.4 H D, Albumin 3.4, Globulin 5.0 H, Albumin/Globulin Ratio 0.7 L 01/29/19 05:55: WBC 8.6 D, RBC 4.60, Hgb 13.2 D, Hct 39.5, MCV 85.9, MCH 28.7, MCHC 33.4, RDW 14.4, Plt Count 345, MPV 8.3, Neut % (Auto) 42.0, Lymph % (Auto) 48.4, [place] % (Auto) 5.6, Eos % (Auto) 3.4, Baso % (Auto) 0.7, Neut # (Auto) 3.6, Lymph # (Auto) 4.2, [place] # (Auto) 0.5, Eos # (Auto) 0.3, Baso # (Auto) 0.1 01/29/19 05:55: Sodium 141, Potassium 2.2 L*, Chloride 111 H, Carbon Dioxide 15 L, Anion Gap 17.2 H, BUN 10 D, Creatinine 1.35 H, Estimated Creat Clear 61, Estimated GFR 44 L, Est GFR ( Amer) 53 L, Glucose 103, Calcium 8.5 I & O for Last 24 hours: Intake & Output 01/26/19 01/27/19 01/28/19 01/29/19 10:59 10:59 11:59 11:59 Intake Total 5594 / 5594 Balance 5594 / 5594 Weight 150 lb - Constitutional no acute distress Comments: Complaining of pain. Has difficulty with movements from lying to sitting due to pain - *Routine Respiratory Exam Present: CTA bilaterally (Anteriorly and posteriorly) - *Routine Cardiovascular Exam Present: RRR - *Routine Abdominal Exam Present: soft, normoactive bowel sounds. 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 and IV potassium. We will recheck potassium after IV run
[2019-01-30 06:19] LABS: Anion Gap 14.9 mEq/L (5-15); Calcium 8.5 mg/dL (8.5-10.1)
[2019-01-30 06:22] LABS: Potassium 2.9 mmoL/L (3.5-5.1)
--- NOTE | 2019-01-30 09:24 | Progress Note ---
Internal Medicine - PN: Brian *Date: 01/30/19 *Time: 09:22 Interval history: She feels a little bit better. She has been more active in his walk the hallways. Her potassium is up to 2.9. Exam Vital signs and Labs for Last 24 Hours: Temp Pulse Resp BP Pulse Ox 98.2 F 95 H 18 114/45 L 99 01/30/19 08:00 01/30/19 08:00 01/30/19 08:00 01/30/19 08:00 01/30/19 08:50 Laboratory Results - last 24 hr 01/29/19 13:04: Potassium 2.7 L* D 01/30/19 05:49: Sodium 140, Potassium 2.9 L*, Chloride 113 H, Carbon Dioxide 15 L, Anion Gap 14.9, BUN 10, Creatinine 1.36 H, Estimated Creat Clear 60, Estimated GFR 44 L, Est GFR ( Amer) 53 L, Glucose 114 H, Calcium 8.5 I & O for Last 24 hours: Intake & Output 01/27/19 01/28/19 01/29/19 01/30/19 10:59 11:59 11:59 11:59 Intake Total 5594 / 5594 3780 / 3780 Balance 5594 / 5594 3780 / 3780 Weight 150 lb 150 lb - Constitutional no acute distress - *Routine Respiratory Exam Present: CTA bilaterally - *Routine Cardiovascular Exam Present: RRR - *Routine Extremities Exam Absent: edema Assessment and Plan (1) Hypokalemia Current visit: Yes Status: Acute Category: Medical Code(s): E87.6 - Hypokalemia (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
[2019-01-31 07:12] LABS: Anion Gap 14.1 mEq/L (5-15); Calcium 8.4 mg/dL (8.5-10.1); Potassium 4.1 mmoL/L (3.5-5.1)
--- NOTE | 2019-01-31 08:31 | Progress Note ---
Internal Medicine - PN: Subj *Date: 01/31/19 *Time: 08:29 Interval history: Potassium is 4.1 today. Patient does feel better with less leg pain. She has been ambulating without difficulty. She is eating well. She has slept. She is ready to go home. Exam Vital signs and Labs for Last 24 Hours: Temp Pulse Resp BP Pulse Ox 98.4 F 99 H 20 96/57 L 98 01/31/19 08:00 01/31/19 08:00 01/31/19 08:00 01/31/19 08:00 01/31/19 08:00 Laboratory Results - last 24 hr 01/31/19 06:46: Sodium 139, Potassium 4.1 D, Chloride 112 H, Carbon Dioxide 17 L, Anion Gap 14.1, BUN 11, Creatinine 1.54 H, Estimated Creat Clear 53, Estimated GFR 38 L, Est GFR ( Amer) 46 L, Glucose 147 H, Calcium 8.4 L I & O for Last 24 hours: Intake & Output 01/28/19 01/29/19 01/30/19 01/31/19 11:59 11:59 11:59 11:59 Intake Total 5594 / 5594 3780 / 3780 4660 / 4660 Balance 5594 / 5594 3780 / 3780 4660 / 4660 Weight 150 lb 150 lb - Constitutional no acute distress Comments: Awakened from sleep for exam - *Routine Respiratory Exam Present: CTA bilaterally (Anteriorly and posteriorly) - *Routine Cardiovascular Exam Present: RRR - *Routine Abdominal Exam Present: soft, normoactive bowel sounds. 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 Potassium has normalized. Probably home today.
--- NOTE | 2019-01-31 08:59 | Discharge Summary ---
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 The syndrome is characterized by low potassium levels and increased pH plus low to normal blood pressure. She is normally a patient of Dr. Saturnino Esteves in [facility]. She states that she was last hospitalized in October at [place]. Her licensed occupational therapy assistant is Dr. Isaacs but she has not seen him recently. She presented in the emergency room at [facility] complaining of nausea and muscle cramps. She suspects that her potassium is low. She has received a run of potassium in the emergency room and has been admitted. Her potassium was 2.2 in the emergency room. She feels anxious and agitated. She complains of muscle pain. She is aware of some occasional heart dysrhythmia. She has borderline personality disorder and takes olanzapine 5 mg at bedtime. She has GERD and has been on omeprazole and and ranitidine. Regarding her Bartter syndrome, she takes spironolactone 25 mg daily and usually takes 40 mEq of potassium 3 or 4 times a day. When she was here in July her urine was positive for amphetamines and benzodiazepines and also opiates. Hospital Course Hospital Course: Her chest x-ray showed nothing acute. The patient received numerous runs of IV potassium as well as p.o. potassium. She began feeling better with less leg pain and was able to ambulate without difficulty. She began resting well. Her potassium increased to 4.1 with supplementation and she was stable to be discharged home on an increased dose of oral potassium. Objective Vital signs: Temp Pulse Resp BP Pulse Ox 98.4 F 99 H 20 96/57 L 98 01/31/19 08:00 01/31/19 08:00 01/31/19 08:00 01/31/19 08:00 01/31/19 08:00 Narrative: - Constitutional no acute distress - *Routine HEENT Exam Head: Present: normocephalic Eye: Present: PERRL ENT: Present: mucous membranes moist - *Routine Neck Exam Present: supple, full ROM - Routine Chest/Breast/Axilla Exam Chest wall: Absent: tenderness - *Routine Respiratory Exam Present: CTA bilaterally - *Routine Cardiovascular Exam Present: RRR - *Routine Abdominal Exam Present: soft. Absent: tenderness, organomegaly - *Routine Extremities Exam Absent: edema - *Routine Neurological Exam Present: alert, oriented X3, moving all extremities, normal tone - Routine Psychiatric Exam Present: normal thought process, anxious Results Labs on day of discharge: Labs from last 24 hours 01/31/19 06:46 Sodium 139 Potassium 4.1 D Chloride 112 H Carbon Dioxide 17 L Anion Gap 14.1 BUN 11 Creatinine 1.54 H Estimated Creat Clear 53 Estimated GFR 38 L Est GFR ( Amer) 46 L Glucose 147 H Calcium 8.4 L DS: Diagnosis - Discharge Diagnosis (1) Hypokalemia Status: Acute (2) Bartter syndrome Status: Chronic (3) Pain management Status: Acute Discharge Plan - Patient Discharge Instructions Patient Instructions: DI for Hypokalemia - Follow up Plan Home Medications: Home Medications Medication Instructions Recorded Confirmed Type Omeprazole Magnesium [Prilosec Otc 20 mg PO DAILY 11/28/17 01/28/19 History 20mg Tab] Doxepin HCl 100 mg PO HS 04/13/18 01/28/19 History Fluticasone/Vilanterol [Breo 1 puff IH DAILY 07/24/18 01/28/19 History Ellipta 200-25 Mcg INH] Ondansetron HCl [Ondansetron 4mg 4 mg PO Q8HP PRN 01/28/19 01/28/19 History Tablet] Potassium Citrate [Potassium 15 meq PO TID 01/28/19 01/28/19 History Citrate ER] Sodium Bicarbonate [Sodium 1,300 mg PO TID 01/28/19 01/29/19 History Bicarbonate 650mg Tablet] Cetirizine HCl 10 mg PO DAILY 01/29/19 01/29/19 History Gabapentin 800 mg PO TID 01/29/19 01/29/19 History Nicotine [Nicoderm 7mg/24hrs patch] 1 each TD DAILY 01/29/19 01/29/19 History OLANZapine [Olanzapine] 20 mg PO HS 01/29/19 01/29/19 History Potassium Chloride [Klor-con 20 20 meq PO QID 01/29/19 01/29/19 History mEq tablet] Spironolactone 50 mg PO DAILY 01/29/19 01/29/19 History Nicotine [Nicoderm 21mg/24hr 21 mg TD DAILY #30 patch.td24 01/31/19 Rx patch] Potassium Chloride [K-Tab ER 20 40 meq PO TID #180 tab 01/31/19 Rx mEq] Prescriptions/Medication Reconciliation: No Action Omeprazole Magnesium [Prilosec Otc 20mg Tab] 20 mg PO DAILY Potassium Citrate [Potassium Citrate ER] 15 meq PO TID Sodium Bicarbonate [Sodium Bicarbonate 650mg Tablet] 1,300 mg PO TID Ondansetron HCl [Ondansetron 4mg Tablet] 4 mg PO Q8HP PRN PRN Reason: Nausea Nicotine [Nicoderm 7mg/24hrs patch] 1 each TD DAILY Gabapentin 800 mg PO TID Potassium Chloride [Klor-con 20 mEq tablet] 20 meq PO QID Spironolactone 50 mg PO DAILY Doxepin HCl 100 mg PO HS Fluticasone/Vilanterol [Breo Ellipta 200-25 Mcg INH] 1 puff IH DAILY Cetirizine HCl 10 mg PO DAILY OLANZapine [Olanzapine] 20 mg PO HS
== END 2019-01-31 10:27 | disposition home or self-care (01) | DRG 641 ==
LOC: ER 10:02 → ICU 10:02 → OBSVTOIN 12:10 → ICU 12:11 → 2ND 01-29 17:10
PROVIDERS: ADMIT Family Medicine; ATTEND Family Medicine

== ENCOUNTER 2019-04-20 18:19 | Observation (INO) | payer OTHER, SELFPAY ==
[2019-04-20 18:29] VITALS: BP 126/77; PULSE 98; RESP 20; TEMP 37.2; O2SAT 99; BMI 24.9
--- NOTE | 2019-04-20 18:41 | XR_ITS ---
XR chest portable HISTORY: Weakness, smoker ITS.REASON: weak ORDERING PHYSICIAN: Fco Miles MD PATIENT AGE: 39 years COMPARISON: 01/28/2019 FINDINGS: The cardiomediastinal silhouette and pulmonary vascularity are within normal limits. The lungs are clear without infiltrates, suspicious nodules, or pleural effusions. No acute bony abnormalities. IMPRESSION: Negative chest, no acute finding
--- NOTE | 2019-04-20 18:42 | HMH.EDGENADL ---
ED Disposition <Fco Miles - Last Filed: 04/20/19 19:47> Condition on Discharge: Good Time of Disposition: 22:42 - Critical Care Critical Care Time: No <Ortiz Santos - Last Filed: 04/20/19 22:53> Clinical Impression: Bartters syndrome, Hypokalemia Disposition: Admitted as Observation Referrals: Wendy Khoury [Primary Care Provider] - Attestation: On 04/20/19, the high probability of a clinically significant, sudden or life threatening deterioration of the following system(s) required my full and direct attention, intervention and personal management. The time I documented below is in addition to time spent performing reported procedures but includes the following listed in this critical care notation. Medical Decision Making <Fco Miles - Last Filed: 04/20/19 19:47> - Medical Records Medical records reviewed: Yes: I reviewed the patient's medical records. - Guille Inquiry Pt receiving controlled substance: No Guille was queried for this patient: No - Lab Data Lab results reviewed: Yes: I reviewed the patient's lab results. Result diagrams: 04/20/19 20:03 04/20/19 20:03 - Physician Consults Physician Consulted: ashleigh Time: 22:42 Reason -: Admission, Pt condition Comment/Response: admit for k runs <Ortzi Santos - Last Filed: 04/20/19 22:53> Vital Signs: 04/20/19 18:29 Temperature 98.9 F Temperature Source Oral Pulse Rate [Right Radial] 98 H Respiratory Rate 20 Blood Pressure [Right Arm] 126/77 Blood Pressure Mean [Right Arm] 93 Blood Pressure Source [Right Arm] Automatic Cuff Blood Pressure Position [Right Arm] Sitting 02 Sat by Pulse Oximetry 99 Oxygen Delivery Method Room Air - Lab Data Lab Results 04/20/19 19:45: Urine Color Yellow, Urine Appearance Clear, Urine pH 6.0, Ur Specific [place] 1.015, Urine Protein Negative, Urine Glucose (UA) Negative, Urine Ketones Negative, Urine Blood Negative, Urine Nitrate Negative, Urine Bilirubin Negative, Urine Urobilinogen 0.2, Ur Leukocyte Esterase Negative, Urine WBC 3-5, Uric Acid Crystals 1+, Amorphous Sediment 2+ 04/20/19 19:45: Urine Opiates Screen Negative, Urine Methadone Screen Negative, Ur Barbituates Screen Negative, Ur Phencyclidine Scrn Negative, Ur Amphetamines Screen Negative, U Benzodiazepines Scrn Negative, Urine Cocaine Screen Negative, U Marijuana (THC) Screen Negative 04/20/19 20:03: WBC 10.5, RBC 4.44, Hgb 12.8, Hct 36.7 L, MCV 82.5, MCH 28.8, MCHC 34.9, RDW 13.6, Plt Count 392, MPV 7.3 L, Neut % (Auto) 66.0, Lymph % (Auto) 26.4, [place] % (Auto) 5.1, Eos % (Auto) 2.3, Baso % (Auto) 0.3, Neut # (Auto) 6.9, Lymph # (Auto) 2.8, [place] # (Auto) 0.5, Eos # (Auto) 0.2, Baso # (Auto) 0.0 04/20/19 20:03: Sodium 138, Potassium 2.4 L*, Chloride 106, Carbon Dioxide 18 L, Anion Gap 16.4 H, BUN 14, Creatinine 1.51 H, Estimated Creat Clear 52, Estimated GFR 38 L, Est GFR ( Amer) 46 L, Glucose 98, Calcium 9.0, Total Bilirubin 0.5, AST 28, ALT 19, Alkaline Phosphatase 94, Total Creatine Kinase 286 H, Troponin I < 0.02, Total Protein 8.3 H, Albumin 3.6, Globulin 4.7 H, Albumin/Globulin Ratio 0.8 L, Lipase 107, Plasma/Serum Alcohol 0 04/20/19 20:03: Lactate 0.8 04/20/19 20:03: Serum HCG, Qual Negative 04/20/19 20:03: D-Dimer 707 H* Orders (Tests/Meds): ED MEDICATIONS Generic Name Dose Route Start Last Admin Trade Name Freq PRN Reason Stop Dose Admin Potassium Chloride/Water 100 mls @ 50 mls/hr 04/20/19 20:32 04/20/19 20:44 Potassium Chloride 20meq/100ml Ivpb IV 04/21/19 00:31 50 mls/hr Q2H DG Administration Discontinued Medications Generic Name Dose Route Start Last Admin Trade Name Freq PRN Reason Stop Dose Admin Acetaminophen 500 mg 04/20/19 18:40 04/20/19 19:06 Tylenol 500mg Tablet PO 04/20/19 18:41 500 mg ONCE ONE Administration Morphine Sulfate 4 mg 04/20/19 20:50 04/20/19 21:35 Morphine 4mg/Ml Syringe IV 04/20/19 20:51 4 mg ONCE ONE Administration Ondansetron HCl 4 mg
--- NOTE | 2019-04-20 18:45 | ED_ITS ---
ED Disposition <Fco Miels - Last Filed: 04/20/19 19:47> Condition on Discharge: Good Time of Disposition: 22:42 - Critical Care Critical Care Time: No <Ortiz Santos - Last Filed: 04/20/19 22:53> Clinical Impression: Bartters syndrome, Hypokalemia Disposition: Admitted as Observation Referrals: Wendy Khoury [Primary Care Provider] - Attestation: On 04/20/19, the high probability of a clinically significant, sudden or life threatening deterioration of the following system(s) required my full and direct attention, intervention and personal management. The time I documented below is in addition to time spent performing reported procedures but includes the following listed in this critical care notation. Medical Decision Making <Fco Miles - Last Filed: 04/20/19 19:47> - Medical Records Medical records reviewed: Yes: I reviewed the patient's medical records. - Guille Inquiry Pt receiving controlled substance: No Guille was queried for this patient: No - Lab Data Lab results reviewed: Yes: I reviewed the patient's lab results. Result diagrams: 04/20/19 20:03 04/20/19 20:03 - Physician Consults Physician Consulted: ashleigh Time: 22:42 Reason -: Admission, Pt condition Comment/Response: admit for k runs <Ortiz Santos - Last Filed: 04/20/19 22:53> Vital Signs: 04/20/19 18:29 Temperature 98.9 F Temperature Source Oral Pulse Rate [Right Radial] 98 H Respiratory Rate 20 Blood Pressure [Right Arm] 126/77 Blood Pressure Mean [Right Arm] 93 Blood Pressure Source [Right Arm] Automatic Cuff Blood Pressure Position [Right Arm] Sitting 02 Sat by Pulse Oximetry 99 Oxygen Delivery Method Room Air - Lab Data Lab Results 04/20/19 19:45: Urine Color Yellow, Urine Appearance Clear, Urine pH 6.0, Ur Specific [place] 1.015, Urine Protein Negative, Urine Glucose (UA) Negative, Urine Ketones Negative, Urine Blood Negative, Urine Nitrate Negative, Urine Bilirubin Negative, Urine Urobilinogen 0.2, Ur Leukocyte Esterase Negative, Urine WBC 3-5, Uric Acid Crystals 1+, Amorphous Sediment 2+ 04/20/19 19:45: Urine Opiates Screen Negative, Urine Methadone Screen Negative, Ur Barbituates Screen Negative, Ur Phencyclidine Scrn Negative, Ur Amphetamines Screen Negative, U Benzodiazepines Scrn Negative, Urine Cocaine Screen Negative, U Marijuana (THC) Screen Negative 04/20/19 20:03: WBC 10.5, RBC 4.44, Hgb 12.8, Hct 36.7 L, MCV 82.5, MCH 28.8, MCHC 34.9, RDW 13.6, Plt Count 392, MPV 7.3 L, Neut % (Auto) 66.0, Lymph % (Auto) 26.4, [place] % (Auto) 5.1, Eos % (Auto) 2.3, Baso % (Auto) 0.3, Neut # (Auto) 6.9, Lymph # (Auto) 2.8, [place] # (Auto) 0.5, Eos # (Auto) 0.2, Baso # (Auto) 0.0 04/20/19 20:03: Sodium 138, Potassium 2.4 L*, Chloride 106, Carbon Dioxide 18 L, Anion Gap 16.4 H, BUN 14, Creatinine 1.51 H, Estimated Creat Clear 52, Estimated GFR 38 L, Est GFR ( Amer) 46 L, Glucose 98, Calcium 9.0, Total Bilirubin 0.5, AST 28, ALT 19, Alkaline Phosphatase 94, Total Creatine Kinase 286 H, Troponin I < 0.02, Total Protein 8.3 H, Albumin 3.6, Globulin 4.7 H, Albumin/Globulin Ratio 0.8 L, Lipase 107, Plasma/Serum Alcohol 0 04/20/19 20:03: Lactate 0.8 04/20/19 20:03: Serum HCG, Qual Negative 04/20/19 20:03: D-Dimer 707 H* Orders (Tests/Meds): ED MEDICATIONS Generic
--- NOTE | 2019-04-20 19:23 | PC.NURSE ---
report given to SavRN
[2019-04-20 19:51] LABS: Microscopic, Urine URINE MICROSCOPIC (MICROSCOPIC)
[2019-04-20 19:54] LABS: Appearance,Urine CLEAR (Clear); Bilirubin,Urine Negative (Negative); Blood, Urine Negative (Negative); Color,Urine YELLOW (Yellow); Glucose,Urine (UA) Negative (Negative); Ketones,Urine Negative (Negative); Leukocyte Esterase,Urine Negative (Negative); Nitrate,Urine Negative (Negative); Protein,Urine Negative (Negative); Specific Gravity, Urine 1.015 (1.005-1.030); Urobilinogen,Urine 0.2 EU/dl (0.2)
[2019-04-20 19:59] LABS: Amorphous Sediment,Urine 2+ /lpf
[2019-04-20 20:00] LABS: Uric Acid Crystals,Urine 1+ /lpf
[2019-04-20 20:02] LABS: Amphetamine/Metha Screen,Urine Negative ng/mL (<1000); Barbiturates Screen,Urine Negative ng/mL (<200); Benzodiazepines Screen,Urine Negative ng/mL (<200); Cannabinoid Screen,Urine Negative ng/mL (<50); Cocaine Screen,Urine Negative ng/mL (<300); Methadone Screen,Urine Negative ng/mL (<300); Opiate Screen,Urine Negative ng/mL (<300); Phencyclidine Screen,Urine Negative ng/mL (<25)
[2019-04-20 20:14] LABS: Basophils % 0.3 % (0.1-2.0); Eosinophils # 0.2 K/mm3 (0.0-0.4); Eosinophils % 2.3 % (0.1-12.0); Hematocrit 36.7 % (37.0-47.0); Hemoglobin 12.8 g/dL (12.2-16.2); Lymphocytes # 2.8 K/mm3 (0.7-4.5); Lymphocytes % 26.4 % (10-50); Mean Corpuscular HGB Conc 34.9 g/dL (31.8-35.4); Mean Corpuscular Hemoglobin 28.8 pg (27.0-31.2); Mean Corpuscular Volume 82.5 fl (81-99); Mean Platelet Volume 7.3 fl (7.4-10.4); Monocytes # 0.5 K/mm3 (0.1-1.0); Monocytes % 5.1 % (1.7-9.3); Neutrophils # 6.9 K/mm3 (1.8-7.8); Platelet Count 392 K/mm3 (142-424); Red Blood Count 4.44 M/mm3 (4.20-5.40); Red Cell Distribution Width 13.6 % (11.5-17.5); White Blood Count 10.5 K/mm3 (4.8-10.8)
[2019-04-20 20:26] LABS: HCG Qualitative, Serum Negative (Negative)
[2019-04-20 20:29] LABS: Lactic Acid 0.8 mmol/L (0.4-2.0)
[2019-04-20 20:31] LABS: Alanine Aminotransferase 19 U/L (12-78); Albumin Level 3.6 gm/dL (3.4-5.0); Albumin/Globulin Ratio 0.8 (1.1-1.8); Alkaline Phosphatase 94 U/L (46-116); Anion Gap 16.4 mEq/L (5-15); Aspartate Amino Transferase 28 U/L (15-37); Bilirubin,Total 0.5 mg/dL (0.2-1.0); Blood Urea Nitrogen 14 mg/dL (7-18); Carbon Dioxide 18 mmol/L (21.0-32.0); Chloride 106 mmol/L (98-107); Creatine Kinase 286 U/L (26-192); Creatinine Clearance Estimated 52 mL/min (50-200); Creatinine,Serum 1.51 mg/dL (0.55-1.02); Estimated Glomerular Filt Rate 38 ml/min (>60); GFR (African American) 46 ML/MIN (>60); Globulin 4.7 gm/dl (1.3-3.2); Glucose 98 mg/dL (74-106); Lipase 107 u/L (73-393); Sodium 138 mmol/L (136-145); Total Protein,Serum 8.3 gm/dL (6.4-8.2); Troponin I < 0.02 ng/ml (0.00-0.06)
[2019-04-20 20:33] LABS: Ethyl Alcohol 0 mg/dL (0-99); Potassium 2.4 mmoL/L (3.5-5.1)
[2019-04-20 20:43] LABS: D-Dimer 707 ng/mL (0-400)
[2019-04-20 23:55] VITALS: BP 134/76; PULSE 94; RESP 16; TEMP 37.2; O2SAT 98
[2019-04-21 00:20] VITALS: BP 111/58; PULSE 91; RESP 18; TEMP 36.6; O2SAT 99; BMI 27.1
[2019-04-21 00:50] VITALS: PULSE 94; RESP 16; O2SAT 99
--- NOTE | 2019-04-21 01:25 | PC.NURSE ---
PT ASKED ABOUT HER NIGHT MEDS. I TOLD HER THAT HER MEDS ARE SCHEDULED TO START LATER THIS MORNING. PT STATED SHE HAD HER HOME MEDS IN HER PURSE AND WAS GOING TO TAKE THEM, THEN I COULD LOCK THEM UP. PT TOOK HER SPIRLACTONEJ, GABAPENTIN, DOXEPIN, PRILOSEC OTC, INHALER BREO ELLIPTA AND STATED SHE TOOK 4 TYLENOL WELL BUT THAT THEY AREN'T IN A TYLENOL BOTTLE. PT EXTREMELY AGITATED, CONSTANT MOVING, FIDGETING, NON-STOP. STATES HER PAIN IR AN 8 AND IS IN ALL OF HER MUSCLES. C/O SOME NAUSEA BECAUSE OF THIS. I TOLD HER AFTER FIRST KCL RUN COMPLETES I WILL GIVEN HER PRN PHENERGAN IV THEN FLUSH SITE AND START NEXT BAG OF 3 TOTAL POTASSIUM RUNS.
[2019-04-21 04:24] VITALS: BP 95/60; PULSE 70; RESP 18; TEMP 36.7; O2SAT 100
[2019-04-21 06:16] LABS: Basophils % 0.3 % (0.1-2.0); Eosinophils # 0.1 K/mm3 (0.0-0.4); Eosinophils % 1.7 % (0.1-12.0); Hematocrit 35.1 % (37.0-47.0); Lymphocytes # 3.2 K/mm3 (0.7-4.5); Lymphocytes % 42.3 % (10-50); Mean Corpuscular HGB Conc 34.2 g/dL (31.8-35.4); Mean Corpuscular Hemoglobin 29.1 pg (27.0-31.2); Mean Corpuscular Volume 85.1 fl (81-99); Mean Platelet Volume 7.6 fl (7.4-10.4); Monocytes # 0.4 K/mm3 (0.1-1.0); Monocytes % 5.3 % (1.7-9.3); Neutrophils # 3.8 K/mm3 (1.8-7.8); Neutrophils % 50.4 % (37.0-80.0); Platelet Count 327 K/mm3 (142-424); Red Blood Count 4.13 M/mm3 (4.20-5.40); Red Cell Distribution Width 13.8 % (11.5-17.5); White Blood Count 7.5 K/mm3 (4.8-10.8)
[2019-04-21 06:43] LABS: Anion Gap 15.7 mEq/L (5-15); Blood Urea Nitrogen 11 mg/dL (7-18); Calcium 8.3 mg/dL (8.5-10.1); Carbon Dioxide 19 mmol/L (21.0-32.0); Chloride 109 mmol/L (98-107); Creatinine Clearance Estimated 60 mL/min (50-200); Creatinine,Serum 1.43 mg/dL (0.55-1.02); Estimated Glomerular Filt Rate 41 ml/min (>60); GFR (African American) 49 ML/MIN (>60); Glucose 80 mg/dL (74-106); Potassium 3.7 mmoL/L (3.5-5.1); Sodium 140 mmol/L (136-145)
--- NOTE | 2019-04-21 06:52 | PC.NURSE ---
PT AWAKE MOST OF SHIFT SINCE ADMISSION. PT HAS DIFFICULTY SITTING STILL. CONSTANTLY MOVING, CONSTANT TWITCHING. IN AND OUT OF BED MULTIPLE TIMES. TALKS TO HERSELF. PT PULLED HER IV OUT WITH ALL THE MOVING SHE WAS DOING. NEW IV STARTED #20 LFA, FLUIDS NS@50ML/HR CONTINUES. RESPIRATIONS EVEN AND UNLABORED. BREATH SOUNDS CLEAR. NO CURRENT C/O PAIN. PT RECEIVED 1 KCL RUN IN ER AND 3 ON FLOOR FOR TOTAL OF 40MEQ KCL. PT HAD A.M. LABS THIS MORNING. PT STABLE. WILL CONTINUE TO MONITOR. REPORT TO BE GIVEN TO ONCOMING NURSE.
[2019-04-21 08:00] VITALS: BP 114/65; PULSE 84; RESP 20; TEMP 36.4; O2SAT 98
[2019-04-21 08:45] VITALS: O2SAT 98
--- NOTE | 2019-04-21 09:03 | HMH.ACPN2 ---
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 She had a potassium of 2.4. After 5 runs of potassium and oral supplementation her potassium is 3.7 this morning. She was last hospitalized here in January but was also hospitalized at [place] in February. She is a patient of Dr. Saturnino Esteves and her reconciliation clerk is Dr. Isaacs. She denies current drug use. She complains of some skin lesions particularly on the left index finger. She is not allergic to Bactrim. Exam Vital signs and Labs for Last 24 Hours: Temp Pulse Resp BP Pulse Ox 98.0 F 70 18 95/60 L 100 04/21/19 04:24 04/21/19 04:24 04/21/19 04:24 04/21/19 04:24 04/21/19 04:24 Laboratory Results - last 24 hr 04/20/19 19:45: Urine Color Yellow, Urine Appearance Clear, Urine pH 6.0, Ur Specific [place] 1.015, Urine Protein Negative, Urine Glucose (UA) Negative, Urine Ketones Negative, Urine Blood Negative, Urine Nitrate Negative, Urine Bilirubin Negative, Urine Urobilinogen 0.2, Ur Leukocyte Esterase Negative, Urine WBC 3-5, Uric Acid Crystals 1+, Amorphous Sediment 2+ 04/20/19 19:45: Urine Opiates Screen Negative, Urine Methadone Screen Negative, Ur Barbituates Screen Negative, Ur Phencyclidine Scrn Negative, Ur Amphetamines Screen Negative, U Benzodiazepines Scrn Negative, Urine Cocaine Screen Negative, U Marijuana (THC) Screen Negative 04/20/19 20:03: WBC 10.5, RBC 4.44, Hgb 12.8, Hct 36.7 L, MCV 82.5, MCH 28.8, MCHC 34.9, RDW 13.6, Plt Count 392, MPV 7.3 L, Neut % (Auto) 66.0, Lymph % (Auto) 26.4, [place] % (Auto) 5.1, Eos % (Auto) 2.3, Baso % (Auto) 0.3, Neut # (Auto) 6.9, Lymph # (Auto) 2.8, [place] # (Auto) 0.5, Eos # (Auto) 0.2, Baso # (Auto) 0.0 04/20/19 20:03: Sodium 138, Potassium 2.4 L*, Chloride 106, Carbon Dioxide 18 L, Anion Gap 16.4 H, BUN 14, Creatinine 1.51 H, Estimated Creat Clear 52, Estimated GFR 38 L, Est GFR ( Amer) 46 L, Glucose 98, Calcium 9.0, Total Bilirubin 0.5, AST 28, ALT 19, Alkaline Phosphatase 94, Total Creatine Kinase 286 H, Troponin I < 0.02, Total Protein 8.3 H, Albumin 3.6, Globulin 4.7 H, Albumin/Globulin Ratio 0.8 L, Lipase 107, Plasma/Serum Alcohol 0 04/20/19 20:03: Lactate 0.8 04/20/19 20:03: Serum HCG, Qual Negative 04/20/19 20:03: D-Dimer 707 H* 04/21/19 06:00: WBC 7.5 D, RBC 4.13 L, Hgb 12.0 L, Hct 35.1 L, MCV 85.1, MCH 29.1, MCHC 34.2, RDW 13.8, Plt Count 327, MPV 7.6, Neut % (Auto) 50.4, Lymph % (Auto) 42.3, [place] % (Auto) 5.3, Eos % (Auto) 1.7, Baso % (Auto) 0.3, Neut # (Auto) 3.8, Lymph # (Auto) 3.2, [place] # (Auto) 0.4, Eos # (Auto) 0.1, Baso # (Auto) 0.0 04/21/19 06:00: Sodium 140, Potassium 3.7 D, Chloride 109 H, Carbon Dioxide 19 L, Anion Gap 15.7 H, BUN 11, Creatinine 1.43 H, Estimated Creat Clear 60, Estimated GFR 41 L, Est GFR ( Amer) 49 L, Glucose 80, Calcium 8.3 L I & O for Last 24 hours: Intake & Output 04/18/19 04/19/19 04/20/19 04/21/19 11:59 11:59 11:59 11:59 Intake Total 2459 / 2459 Balance 2459 / 2459 Weight 158 lb 8 oz - Constitutional no acute distress (Anxious) - *Routine HEENT Exam Eye: Present: PERRL ENT: Present: mucous membranes moist - *Routine Respiratory Exam Present: CTA bilaterally - *Routine Cardiovascular Exam Present: RRR - *Routine Abdominal Exam Present: soft. Absent: tenderness - *Routine Extremities Exam Absent: edema Comments: She has scattered small skin ulcerations. She has a lesion of the left index finger which may be developing into a felon. 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
--- NOTE | 2019-04-21 09:06 | P.PN_ITS ---
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 She had a potassium of 2.4. After 5 runs of potassium and oral supplementation her potassium is 3.7 this morning. She was last hospitalized here in January but was also hospitalized at [place] in February. She is a patient of Dr. Saturnino Esteves and her smearer is Dr. Isaacs. She denies current drug use. She complains of some skin lesions particularly on the left index finger. She is not allergic to Bactrim. Exam Vital signs and Labs for Last 24 Hours: Temp Pulse Resp BP Pulse Ox 98.0 F 70 18 95/60 L 100 04/21/19 04:24 04/21/19 04:24 04/21/19 04:24 04/21/19 04:24 04/21/19 04:24 Laboratory Results - last 24 hr 04/20/19 19:45: Urine Color Yellow, Urine Appearance Clear, Urine pH 6.0, Ur Specific [place] 1.015, Urine Protein Negative, Urine Glucose (UA) Negative, Urine Ketones Negative, Urine Blood Negative, Urine Nitrate Negative, Urine Bilirubin Negative, Urine Urobilinogen 0.2, Ur Leukocyte Esterase Negative, Urine WBC 3-5, Uric Acid Crystals 1+, Amorphous Sediment 2+ 04/20/19 19:45: Urine Opiates Screen Negative, Urine Methadone Screen Negative, Ur Barbituates Screen Negative, Ur Phencyclidine Scrn Negative, Ur Amphetamines Screen Negative, U Benzodiazepines Scrn Negative, Urine Cocaine Screen Negative, U Marijuana (THC) Screen Negative 04/20/19 20:03: WBC 10.5, RBC 4.44, Hgb 12.8, Hct 36.7 L, MCV 82.5, MCH 28.8, MCHC 34.9, RDW 13.6, Plt Count 392, MPV 7.3 L, Neut % (Auto) 66.0, Lymph % (Auto) 26.4, [place] % (Auto) 5.1, Eos % (Auto) 2.3, Baso % (Auto) 0.3, Neut # (Auto) 6.9, Lymph # (Auto) 2.8, [place] # (Auto) 0.5, Eos # (Auto) 0.2, Baso # (Auto) 0.0 04/20/19 20:03: Sodium 138, Potassium 2.4 L*, Chloride 106, Carbon Dioxide 18 L, Anion Gap 16.4 H, BUN 14, Creatinine 1.51 H, Estimated Creat Clear 52, Estimated GFR 38 L, Est GFR ( Amer) 46 L, Glucose 98, Calcium 9.0, Total Bilirubin 0.5, AST 28, ALT 19, Alkaline Phosphatase 94, Total Creatine Kinase 286 H, Troponin I < 0.02, Total Protein 8.3 H, Albumin 3.6, Globulin 4.7 H, Albumin/Globulin Ratio 0.8 L, Lipase 107, Plasma/Serum Alcohol 0 04/20/19 20:03: Lactate 0.8 04/20/19 20:03: Serum HCG, Qual Negative 04/20/19 20:03: D-Dimer 707 H* 04/21/19 06:00: WBC 7.5 D, RBC 4.13 L, Hgb 12.0 L, Hct 35.1 L, MCV 85.1, MCH 29.1, MCHC 34.2, RDW 13.8, Plt Count 327, MPV 7.6, Neut % (Auto) 50.4, Lymph % (Auto) 42.3, [place] % (Auto) 5.3, Eos % (Auto) 1.7, Baso % (Auto) 0.3, Neut # (Auto) 3.8, Lymph # (Auto) 3.2, [place] # (Auto) 0.4, Eos # (Auto) 0.1, Baso # (Auto) 0.0 04/21/19 06:00: Sodium 140, Potassium 3.7 D, Chloride 109 H, Carbon Dioxide 19 L, Anion Gap 15.7 H, BUN 11, Creatinine 1.43 H, Estimated Creat Clear 60, Estimated GFR 41 L, Est GFR ( Amer) 49 L, Glucose 80, Calcium 8.3 L I & O for Last 24 hours: Intake & Output 04/18/19 04/19/19 04/20/19 04/21/19 11:59 11:59 11:59 11:59 Intake Total 2459 / 2459 Balance 2459 / 2459 Weight 158 lb 8 oz - Constitutional no acute distress (Anxious) - *Routine HEENT Exam Eye: Present: PERRL ENT: Present: mucous membranes moist - *Routine Respiratory Exam Present: CTA bilaterally - *Routine Cardiovascular Exam Present: RRR - *Routine Abdominal Exam Present: soft. Absent: tenderness - *Routine Extremities Exam Absent: edema Comments:
--- NOTE | 2019-04-21 09:14 | HMH.PHAVTE ---
[facility] Pharmacy VTE Monitoring - Patient Demographics Admission date: 04/21/19 Report Date: 04/21/19 Time: 09:14 Allergies/Adverse Reactions: Patient Allergies Penicillins [PENICILLINS] Allergy (Mild, Verified 11/28/17 19:33) NSAIDS (Non-Steroidal Anti-Inflamma Allergy (Verified 04/20/19 18:46) lorazepam [From Ativan] Adverse Reaction (Verified 07/23/18 20:38) Height: 1.63 m Weight: 71.894 kg Patient Problems: Current Active Problems (Updated 04/21/19 @ 09:07 by Annamaria Barreto MD) Hypokalemia (Acute) Bartter syndrome (Chronic) Impetigo (Acute) - VTE Risk Labs: VTE Related Lab Results Hgb 12.0 g/dL (12.2-16.2) L 04/21/19 06:00 Hct 35.1 % (37.0-47.0) L 04/21/19 06:00 Plt Count 327 K/mm3 (142-424) 04/21/19 06:00 BUN 11 mg/dL (7-18) 04/21/19 06:00 Creatinine 1.43 mg/dL (0.55-1.02) H 04/21/19 06:00 Estimated Creat Clear 60 mL/min (50-200) 04/21/19 06:00 VTE Score: 3 VTE Risk Level: Low Risk - Prophylaxis VTE Prophylaxis Ordered?: Yes Types of VTE Prophylaxis: TEDS Knee High Location of Applied Device: Bilateral Lower Extremeties
--- NOTE | 2019-04-21 13:05 | HMH.HPDC ---
General - General Admission date:: 04/21/19 Discharge date: 04/21/19 *Admission Date: 04/21/19 *Chief complaint: Hypokalemia and muscle aches. *History of present illness: This 39-year-old white female was admitted through the emergency room with hypokalemia and muscle aches and cramps. 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 The syndrome is characterized by low potassium levels and increased pH plus low to normal blood pressure. She is normally a patient of Dr. Saturnino Esteves in [facility]. Her proof sorter is Dr. Isaacs. She states that she has been seen since her hospitalization here in January. In fact, she states that in February she was hospitalized at [place] with hypokalemia. In the emergency room her potassium was 2.4. She has received 5 runs of potassium through the night and as well as oral supplementation. This morning her potassium is 3.7. The patient has borderline personality disorder and takes olanzapine 5 mg at bedtime. She has GERD and has been on omeprazole and ranitidine. Regarding her Bartter syndrome, she takes spironolactone 25 mg daily and recently takes potassium citrate 15 mg 3 times daily and potassium gluconate 40 mg 4 times a day. The patient does have a history of drug abuse. She denies current drug usage. She does complain of skin lesions that have been problematic recently. She has a sore on her left index finger and there are other ulcerations that have come up on her extremities. 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, kidney stone removal) Amputation: No Fractures: No - *Social History Educational Level: Completed Grade School Smoking Status: Current every day smoker Tobacco Type: cigarettes # Packs/Day (cigarettes): 1 #Yrs smoked (if former smoker): 20 Alcohol Intake: never Alcohol Intake Frequency:: holidays/special occasions only Substance Use Type: unknown *Occupational Status:: disabled Housing: house Household Members: family *Travel in the last 8 weeks: None Comment: There is a strong family history of heart disease in maternal and paternal grandparents as well as her father who at age 56 apparently of heart disease. Her mother at age 47 and could possibly been a victim of Bartter syndrome. Patient has 1 brother and 1 sister. She has 2 children, boys 13 and 19 years old. - Psychiatric History Expresses thoughts of harming self/others: None Suicide Plan Description: No Plan Pschychiatric History:: Reports:: Anxiety (Borderline personality disorder.) Family Hx:: Coronary Artery Disease, Diabetes, Heart Attack, Hyperlipidemia, Hypertension Comment: See above comments on family history. Review of Systems - Constitutional Reports body ache(s), Reports weakness, Denies fever(s) - Eyes Denies change in vision - ENT Denies abnormal hearing - *Cardiovascular Denies chest pain Comments: Aware of occasional ectopics. - *Respiratory Denies chest congestion - *Gastrointestinal Denies abdominal pain - *Genitourinary Denies abnormal vaginal bleeding - *Musculoskeletal Reports muscle cramps, Reports muscle weakness, Reports body aches - Integumentary/Breasts Comments: Recent skin lesions. Left index finger with evidence of infection. Scattered ulcerations of extremities. - *Neurologic Reports tremor(s), Reports weakness, Denies dizziness, Denies headache(s) - Psychiatric Reports anxiety Comments: Denies recent drug abuse. Exam Vital signs and Labs for Last 24 Hours: Temp Pulse Resp BP Pulse Ox 97.6 F
--- NOTE | 2019-04-21 13:11 | P.HPDS_ITS ---
General - General Admission date:: 04/21/19 Discharge date: 04/21/19 *Admission Date: 04/21/19 *Chief complaint: Hypokalemia and muscle aches. *History of present illness: This 39-year-old white female was admitted through the emergency room with hypokalemia and muscle aches and cramps. 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 The syndrome is characterized by low potassium levels and increased pH plus low to normal blood pressure. She is normally a patient of Dr. Saturnino Esteves in [facility]. Her stna is Dr. Isaacs. She states that she has been seen since her hospitalization here in January. In fact, she states that in February she was hospitalized at [place] with hypokalemia. In the emergency room her potassium was 2.4. She has received 5 runs of potassium through the night and as well as oral supplementation. This morning her potassium is 3.7. The patient has borderline personality disorder and takes olanzapine 5 mg at bedtime. She has GERD and has been on omeprazole and ranitidine. Regarding her Bartter syndrome, she takes spironolactone 25 mg daily and recently takes potassium citrate 15 mg 3 times daily and potassium gluconate 40 mg 4 times a day. The patient does have a history of drug abuse. She denies current drug usage. She does complain of skin lesions that have been problematic recently. She has a sore on her left index finger and there are other ulcerations that have come up on her extremities. 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, kidney stone removal) Amputation: No Fractures: No - *Social History Educational Level: Completed Grade School Smoking Status: Current every day smoker Tobacco Type: cigarettes # Packs/Day (cigarettes): 1 #Yrs smoked (if former smoker): 20 Alcohol Intake: never Alcohol Intake Frequency:: holidays/special occasions only Substance Use Type: unknown *Occupational Status:: disabled Housing: house Household Members: family *Travel in the last 8 weeks: None Comment: There is a strong family history of heart disease in maternal and paternal grandparents as well as her father who at age 56 apparently of heart disease. Her mother at age 47 and could possibly been a victim of Bartter syndrome. Patient has 1 brother and 1 sister. She has 2 children, boys 13 and 19 years old. - Psychiatric History Expresses thoughts of harming self/others: None Suicide Plan Description: No Plan Pschychiatric History:: Reports:: Anxiety (Borderline personality disorder.) Family Hx:: Coronary Artery Disease, Diabetes, Heart Attack, Hyperlipidemia, Hypertension Comment: See above comments on family history. Review of Systems - Constitutional Reports body ache(s), Reports weakness, Denies fever(s) - Eyes Denies change in vision - ENT Denies abnormal hearing - *Cardiovascular Denies chest pain Comments: Aware of occasional ectopics. - *Respiratory Denies chest congestion - *Gastrointestinal Denies abdominal pain - *Genitourinary Denies abnormal vaginal bleeding - *Musculoskeletal Reports muscle cramps, Reports muscle weakness, Reports body aches
--- NOTE | 2019-04-21 14:55 | PC.NURSE ---
PATIENT A&OX4, LUNGS CLEAR, PULSES EQUAL, CABLE TELEVISION PROGRAM DIRECTOR EQUAL. ON FIRST FORENSIC ENGINEER WALKED INTO ROOM AND PATIENT WAS FIDGETING AT THE SINK. RN HAD PATIENT SIT ON THE BED TO DO ASSESSMENT. PATIENT COULD NOT SIT STILL. PATIENT CONTINUE TO PICK AT SKIN SORES AND SCRATCH SELF. RN FOUND AN EMPTY FLUSH IN THE SINK, RN DISPOSED IT. DR. MEJIA AT BEDSIDE, PATIENT ASKED ABOUT SORES ON FINGER AND LEGS, MD STATED, IT IS A SKIN INFECTION, I WILL ORDER YOU ANTIBIOTICS, MD GAVE RN ORDER TO PUT PINK SPONGE ON FINGER, RN APPLIED PINK FOAM BANDAGE. PATIENT CONTINUED TO PLAY WITH IT. AT ADL CHECK PATIENT WAS VERY FIDGETY, CONTINUES TO MOVE IN BED AND ROOM NON STOP. RN EDUCATED PATIENT ABOUT WASHING HANDS TO PREVENT INFECTIONS, NEW MEDICATIONS. NIRALI PHARMACIST ALSO INFORMED PATIENT TO TAKE ALL MEDICATIONS DIRECTED AND TO FOLLOW UP WITH MD ON TUESDAY MORNING IF INFECTION IS NOT CLEARED UP. RN AND PHARMACIST REINFORCED TO PATIENT TO TAKE ALL ANTIBIOTICS DIRECTED. PATIENT VERBALIZED AN UNDERSTANDING. NO NEW CONCERNS OR NEEDS.
== END 2019-04-21 14:20 | disposition home or self-care (01) ==
LOC: ER 22:42 → 2ND 04-21 00:37
PROVIDERS: Emergency Medicine; Admitting Provider Family Medicine; Emergency Provider Emergency Medicine Emergency Medical Services; PCP Family Medicine; Visit Provider Family Medicine
DX: E87.6 Hypokalemia (principal); E26.81 Bartter's syndrome; F31.9 Bipolar disorder, unspecified; L01.00 Impetigo, unspecified; F19.11 Other psychoactive substance abuse, in remission; Z86.14 Personal history of Methicillin resistant Staphylococcus aureus infection; Z79.899 Other long term (current) drug therapy; Z82.49 Family history of ischemic heart disease and other diseases of the circulatory system; Z88.6 Allergy status to analgesic agent; Z88.0 Allergy status to penicillin; Z88.8 Allergy status to other drugs, medicaments and biological substances; Z87.448 Personal history of other diseases of urinary system; Z72.0 Tobacco use; R53.1 Weakness
CPT/HCPCS: 36415; 71045; 80048; 80053; 80305; 81001; 82550; 83605; 83690; 84484; 84703; 85025; 85378; 93005; 96365; 96366; 96375; 99284; G0378; J2405

== ENCOUNTER 2019-04-27 16:22 | Emergency (ER) | payer OTHER, SELFPAY ==
--- NOTE | 2019-04-27 16:53 | HMH.EDGENADL ---
ED Disposition Clinical Impression: Eponychia, Cellulitis Disposition: Home, Self-Care Condition on Discharge: Good Instructions: DI for Skin Abscess Additional Instructions: see your provider Tuesday for follow up. Try to soak the finger for 20 minutes 5-6 times a day Prescriptions: Sulfamethoxazole/Trimethoprim [Bactrim DS tablet] 1 each PO BID 7 Days #14 tab levoFLOXacin [Levaquin 500mg tab] 500 mg PO DAILY #7 tab Tramadol HCl [Ultram 50mg tablet] 50 mg PO TID PRN 4 Days #12 tab PRN Reason: Moderate Pain Referrals: Wendy Khoury [Primary Care Provider] - Time of Disposition: 18:48 - Critical Care Critical Care Time: No Attestation: On 04/27/19, the high probability of a clinically significant, sudden or life threatening deterioration of the following system(s) required my full and direct attention, intervention and personal management. The time I documented below is in addition to time spent performing reported procedures but includes the following listed in this critical care notation. Medical Decision Making - Medical Records Medical records reviewed: Yes: I reviewed the patient's medical records. - Guille Inquiry Pt receiving controlled substance: No Guille was queried for this patient: No Vital Signs: 04/27/19 16:55 04/27/19 17:11 04/27/19 17:44 Temperature 98.3 F Temperature Source Oral Pulse Rate [Right Radial] 94 H 89 75 Respiratory Rate 16 18 Blood Pressure [Right Arm] 119/74 115/78 124/70 Blood Pressure Mean [Right Arm] 89 90 88 Blood Pressure Source [Right Arm] Automatic Cuff Automatic Cuff Blood Pressure Position [Right Arm] Sitting Supine 02 Sat by Pulse Oximetry 99 99 99 Oxygen Delivery Method Room Air Room Air 04/27/19 18:28 Temperature Temperature Source Pulse Rate [Right Radial] 88 Respiratory Rate Blood Pressure [Right Arm] 121/74 Blood Pressure Mean [Right Arm] 89 Blood Pressure Source [Right Arm] Automatic Cuff Blood Pressure Position [Right Arm] Supine 02 Sat by Pulse Oximetry 99 Oxygen Delivery Method Room Air - Lab Data Lab results reviewed: Yes: I reviewed the patient's lab results. Orders (Tests/Meds): ED MEDICATIONS Discontinued Medications Generic Name Dose Route Start Last Admin Trade Name Freq PRN Reason Stop Dose Admin Hydrocodone Bitart/Acetaminophen 1 tab 04/27/19 17:22 04/27/19 17:53 [place] 7.5/325mg Tablet PO 04/27/19 17:23 1 tab ONCE ONE Administration Levofloxacin 500 mg 04/27/19 17:22 04/27/19 17:53 Levaquin 500mg Tab PO 04/27/19 17:23 500 mg ONCE ONE Administration Protocol Lidocaine HCl 10 ml 04/27/19 17:21 04/27/19 17:35 Lidocaine 2% 20ml Vial IJ 04/27/19 17:22 10 ml ONCE ONE Administration ORDERS Category Date Time Status Wound Culture and Gram Stain Stat Micro 04/27/19 18:00 Results General Adult HPI - General Stated complaint: Spot on finger and Leg Time Seen by Provider: 04/27/19 16:54 Mode of Arrival: Ambulatory Source of Information: Patient Limitations: No Limitations - Related Data Home Medications Medication Instructions Recorded Confirmed Omeprazole Magnesium [Prilosec Otc 20 mg PO DAILY 11/28/17 04/20/19 20mg Tab] Doxepin HCl 100 mg PO HS 04/13/18 04/20/19 Fluticasone/Vilanterol [Breo 1 puff IH DAILY 07/24/18 04/20/19 Ellipta 200-25 Mcg INH] Potassium Citrate [Potassium 15 meq PO TID 01/28/19 04/21/19 Citrate ER] Sodium Bicarbonate [Sodium 1,300 mg PO TID 01/28/19 04/20/19 Bicarbonate 650mg Tablet] Cetirizine HCl 10 mg PO DAILY 01/29/19 04/20/19 Gabapentin 800 mg PO TID 01/29/19 04/20/19 OLANZapine [Olanzapine] 20 mg PO HS 01/29/19 04/20/19 Spironolactone 50 mg PO DAILY 01/29/19 04/20/19 Nicotine [Nicoderm 21mg/24hr 21 mg TD DAILY 04/20/19 04/20/19 patch] Previous Rx's Medication Instructions Recorded Potassium Chloride [K-Tab ER 20 40 meq PO TID #90 tablet.er 04/21/19 mEq] Potassium Chloride [Klor-con 20
[2019-04-27 16:55] VITALS: BP 119/74; PULSE 94; RESP 16; TEMP 36.8; O2SAT 99; BMI 25.4
--- NOTE | 2019-04-27 16:57 | ED_ITS ---
ED Disposition Clinical Impression: Eponychia, Cellulitis Disposition: Home, Self-Care Condition on Discharge: Good Instructions: DI for Skin Abscess Additional Instructions: see your provider Tuesday for follow up. Try to soak the finger for 20 minutes 5-6 times a day Prescriptions: Sulfamethoxazole/Trimethoprim [Bactrim DS tablet] 1 each PO BID 7 Days #14 tab levoFLOXacin [Levaquin 500mg tab] 500 mg PO DAILY #7 tab Tramadol HCl [Ultram 50mg tablet] 50 mg PO TID PRN 4 Days #12 tab PRN Reason: Moderate Pain Referrals: Wendy Khoury [Primary Care Provider] - Time of Disposition: 18:48 - Critical Care Critical Care Time: No Attestation: On 04/27/19, the high probability of a clinically significant, sudden or life threatening deterioration of the following system(s) required my full and direct attention, intervention and personal management. The time I documented below is in addition to time spent performing reported procedures but includes the following listed in this critical care notation. Medical Decision Making - Medical Records Medical records reviewed: Yes: I reviewed the patient's medical records. - Guille Inquiry Pt receiving controlled substance: No Guille was queried for this patient: No Vital Signs: 04/27/19 16:55 04/27/19 17:11 04/27/19 17:44 Temperature 98.3 F Temperature Source Oral Pulse Rate [Right Radial] 94 H 89 75 Respiratory Rate 16 18 Blood Pressure [Right Arm] 119/74 115/78 124/70 Blood Pressure Mean [Right Arm] 89 90 88 Blood Pressure Source [Right Arm] Automatic Cuff Automatic Cuff Blood Pressure Position [Right Arm] Sitting Supine 02 Sat by Pulse Oximetry 99 99 99 Oxygen Delivery Method Room Air Room Air 04/27/19 18:28 Temperature Temperature Source Pulse Rate [Right Radial] 88 Respiratory Rate Blood Pressure [Right Arm] 121/74 Blood Pressure Mean [Right Arm] 89 Blood Pressure Source [Right Arm] Automatic Cuff Blood Pressure Position [Right Arm] Supine 02 Sat by Pulse Oximetry 99 Oxygen Delivery Method Room Air - Lab Data Lab results reviewed: Yes: I reviewed the patient's lab results. Orders (Tests/Meds): ED MEDICATIONS Discontinued Medications Generic Name Dose Route Start Last Admin Trade Name Freq PRN Reason Stop Dose Admin Hydrocodone Bitart/Acetaminophen 1 tab 04/27/19 17:22 04/27/19 17:53 [place] 7.5/325mg Tablet PO 04/27/19 17:23 1 tab ONCE ONE Administration Levofloxacin 500 mg 04/27/19 17:22 04/27/19 17:53 Levaquin 500mg Tab PO 04/27/19 17:23 500 mg ONCE ONE Administration Protocol Lidocaine HCl 10 ml 04/27/19 17:21 04/27/19 17:35 Lidocaine 2% 20ml Vial IJ 04/27/19 17:22 10 ml ONCE ONE Administration ORDERS Category Date Time Status Wound Culture and Gram Stain Stat Micro 04/27/19 18:00 Results General Adult HPI - General Stated complaint: Spot on finger and Leg Time Seen by Provider: 04/27/19 16:54 Mode of Arrival: Ambulatory Source of Information: Patient Limitations: No Limitations - Related Data Home M
[2019-04-27 17:11] VITALS: BP 115/78; PULSE 89; O2SAT 99
[2019-04-27 17:44] VITALS: BP 124/70; PULSE 75; RESP 18; O2SAT 99
[2019-04-27 18:28] VITALS: BP 121/74; PULSE 88; O2SAT 99
[2019-04-27 19:02] VITALS: BP 122/75; PULSE 98; O2SAT 100
[2019-04-27 19:15] VITALS: BP 122/85; PULSE 77; RESP 20; TEMP 36.7; O2SAT 99
== END 2019-04-27 19:15 | disposition home or self-care (01) ==
PROVIDERS: Emergency Provider Emergency Medicine; PCP Family Medicine
DX: L03.012 Cellulitis of left finger (principal); L03.116 Cellulitis of left lower limb; F41.9 Anxiety disorder, unspecified; F17.210 Nicotine dependence, cigarettes, uncomplicated; Z88.0 Allergy status to penicillin; Z88.6 Allergy status to analgesic agent
CPT/HCPCS: 87070; 87077; 87186; 87205; 99283